=== PATIENT | female | born 1935 | race Caucasian/White ===

== ENCOUNTER 2016-10-06 10:21 | Observation (INO) ==
--- NOTE | 2016-10-06 10:50 | Emergency Department Note ---
Disposition Clinical Impression: Vaginal irritation Syncope Qualifiers: Syncope type: unspecified Qualified Code(s): R55 - Syncope and collapse Leukocytosis, unspecified Qualifiers: Leukocytosis type: unspecified Qualified Code(s): D72.829 - Elevated white blood cell count, unspecified Disposition: Admitted As Inpatient Condition: Fair Time of Disposition: 13:49 Syncope HPI - General Chief Complaint: ED Syncope Stated Complaint: Syncope on toilet Time Seen by Provider: 10/06/16 10:25 Source: EMS Limitations: no limitations Nursing Notes Reviewed: Yes Vital Signs Reviewed: Yes - History of Present Illness HPI Narrative: This is an 80-year-old female with past medical history for minor stroke, COPD and dementia. She complains of episodes of syncope 1 hour. Patient has home health care and home health life care planner reports patient became limp after attempting to go to the bathroom to urinate. Patient's son was called and went and picked her up. Patient was brought to the ED. Patient had a prior episode of this 9 months ago secondary to UTI. Patient's son also reports the patient' s home health care has's standard and has been having some issues concerning patient's hygiene. He is not on any anticoagulant therapy - Related Data Home Medications Medication Instructions Recorded Confirmed Albuterol Sulfate [Proair Hfa] 1 - 2 puff IH Q4-6H PRN 12/08/15 10/06/16 Atorvastatin [Lipitor] 10 mg PO DAILY 12/08/15 10/06/16 Donepezil [Aricept] 10 mg PO HS 12/08/15 10/06/16 Loratadine [Claritin] 10 mg PO DAILY 12/08/15 10/06/16 Metoprolol [Lopressor] 25 mg PO BID PRN 12/08/15 10/06/16 Sertraline [Zoloft] 25 mg PO DAILY 12/08/15 10/06/16 Memantine HCl [Namenda Xr] 14 mg PO DAILY 01/02/16 10/06/16 Previous Rx's Medication Instructions Recorded Cefdinir [Omnicef] 300 mg PO BID #14 capsule 02/12/16 Allergies Allergy/AdvReac Type Severity Reaction Status Date / Time aspirin [ASA] Allergy Rash Verified 10/06/16 10:30 Review of Systems: Denies pain, headache, fever, chills, nausea, vomiting, chest pain, heart palpitations, abdominal pain, diarrhea, lightheadedness, dizziness, weakness. All systems ED: reviewed and negative except as stated. Past Medical History - Past Medical History Source: old records reviewed, obtained from family Medical history: Reports: COPD, dementia, hyperlipidemia Surgical history: Reports: hysterectomy, orthopedic, other Psychiatric history: Reports: no psych history CHECK WRITER history: Reports: no CHECK WRITER history - Social History Smoking Status: Former smoker Smokeless Tobacco Status: No Alcohol use: Reports: none Drug use: Reports: none Physical Exam Vital Signs Temperature 97.5 F L 10/06/16 10:23 Pulse Rate 80 10/06/16 10:23 Respiratory Rate 18 10/06/16 10:23 Blood Pressure 147/95 10/06/16 10:23 O2 Sat by Pulse Oximetry 95 10/06/16 10:23 Temperature 97.5 F L 10/06/16 10:23 Pulse Rate 84 10/06/16 10:55 Respiratory Rate 16 10/06/16 10:55 Blood Pressure 130/105 10/06/16 10:55 O2 Sat by Pulse Oximetry 99 10/06/16 10:55 Oxygen Delivery Oxygen Delivery Room Air -General Appearance: Patient is a 80-year-old female who is alert and oriented 3 and in no acute distress. Patient appears happy and comfortable -Neurological exam: Cranial nerves II-12 intact, no focal deficits observed, strength equal 5/5 bilaterally in upper and lower extremities, cerebellar motion test negative. Negative loss of sensation - Head Head exam: atraumatic, normocephalic, normal inspection - Eye Eye exam: Present: normal appearance, PERR pinpoint, EOMI, negative for scleral icterus negative for conjunctival pallor - ENT ENT exam: normal exam, normal oropharynx, mucous membranes moist - Neck Neck exam: Present: normal inspection, full ROM, trachea midline, negative JVD - Chest Chest inspection: Present: Patient has bilateral equal rise and fall of chest wall. Non-tender to palpation. - Respiratory Respiratory exam: Clear to auscultation bilaterally without wheezes rales or rhonchi Cardiovascular Cardiovascular exam: Present: regular rate, normal rhythm, normal heart sounds, without murmurs rubs or gallops. - Abdominal Exam Abdominal exam: Present: soft, nondistended, Non-Tender light and deep palpation in all quadrants. Bowel sounds normoactive throughout all 4 quadrants. Negative for hyper or hyperresonance. - Extremities Exam Extremities exam: Present: normal inspection, full ROM, pulses equal bilaterally radial and dorsal pedal and posterior tibial. - Back Exam Back exam: Present: normal inspection, full ROM. Absent: tenderness, CVA tenderness (R), CVA tenderness (L) - Psychiatric Psychiatric exam: Present: normal affect, normal mood - Skin Skin exam: Present: warm, dry, intact, normal color - General Limitations: no limitations General appearance: alert, in no apparent distress Course Course Narrative: Patient seen and examined. Cardiac workup initiated. Chest x-ray, troponin, CBC, BMP, UA ordered as well. Straight catheter ordered for urine collection - Consultations Consultation #1: Dr. Braxton has accepted for admission 1338hrs Time: 13:38 Vital Signs Temperature 97.5 F L 10/06/16 10:23 Pulse Rate 80 10/06/16 10:23 Respiratory Rate 18 10/06/16 10:23 Blood Pressure 147/95 10/06/16 10:23 O2 Sat by Pulse Oximetry 95 10/06/16 10:23 Temperature 97.9 F 10/06/16 15:02 Pulse Rate 67 10/06/16 15:02 Respiratory Rate 18 10/06/16 15:02 Blood Pressure 188/84 10/06/16 15:02 O2 Sat by Pulse Oximetry 96 10/06/16 15:02 Oxygen Delivery Oxygen Delivery Room Air Syncope - [facility] Narrative Medical decision making narrative: Ms. Humphries is an 80-year-old female past medical history for COPD, prior strokes, UTI, dementia presents with a period of syncope lasting possibly 3 minutes 1 hour prior to arrival ED. Patient's history is concerning for possible cardiogenic cause of syncope to include arrhythmia, DE, thoracic aneurysm, vertebral basilar insufficiency, pneumonia, UTI. Patient checks x-ray showed no acute abnormalities, patient's CBC showed an elevation in white count of 13.5, CBC was unremarkable, urinalysis showed small amount of blood. RBCs 5-50 between, microscopic WBCs and 3-5. Troponin was negative 0.00. No clear etiology for patient's syncopal episode at this time. Recommend admission for observation. Patient has skin breakdown in her genital and perineal area secondary to dried feces found in her vaginal area and will require care. Dr. Braxton has accepted patient for admission. - Lab Data Result diagrams: 10/06/16 12:49 10/06/16 12:50 Lab Results 10/06/16 10/06/16 10/06/16 Range/Units 10:30 10:51 12:05 WBC (4.3-11.1) K/mcL RBC (3.82-4.97) M/mcL Hgb (11.5-15.4) g/dL Hct (35.3-44.9) % MCV (83.0-100.0) fL MCH (28.0-33.3) pg MCHC (31.6-35.5) g/dL RDW (11.5-14.5) % Plt Count (140-400) K/mcL MPV (9.4-12.4) fL Immature Gran % (0-4) % Seg Neutrophils % % Lymphocytes % % Monocytes % % Eosinophils % % Basophils % % Neutrophils # (1.6-8.9) K/mcL Lymphocytes # (0.6-4.6) K/mcL Monocytes # (0.0-1.3) K/mcL Eosinophils # (0.0-0.6) K/mcL Basophils # (0.0-0.2) K/mcL Sodium (136-145) mEq/L Potassium (3.5-4.5) mEq/L Chloride (98-109) mEq/L Carbon Dioxide (19-29) mEq/L BUN (7-20) mg/dL Creatinine (0.57-1.11) mg/dL Est GFR ( Amer) (> 60) Est GFR (Non-Af Amer) (> 60) BUN/Creatinine Ratio (6-26) Glucose (70-99) mg/dL POC Glucose 135 H (58-89) Calculated Osmolality (280-300) Calcium (8.6-10.8) mg/dL Troponin I 0.00 (0-0.03) ng/mL Urine Color Yellow (Yellow) Urine Clarity Clear (Clear) Urine pH 6.5 (5.0-8.0) pH Units Ur Specific [place] 1.012 (1.010-1.025) Urine Protein Negative (Neg-Trace) mg/dL Urine Glucose (UA) Normal (Normal) mg/dL Urine Ketones Negative (Negative) mg/dL Urine Blood Small H (Negative) Urine Nitrite Negative (Negative) Urine Bilirubin Negative (Negative) Urine Urobilinogen Normal (Normal) mg/dL Ur Leukocyte Esterase Negative (Negative) Urine Microscopic RBC 5-15 H (0-3) per hpf Urine Microscopic WBC 3-5 H (0-3) per hpf Ur Squamous Epith Cells Many H (None-Few) per lpf Urine Bacteria None Seen (None-Few) per hpf Hyaline Casts None Seen (None-Few) per lpf Ur Culture Indicated? NO (NO) 10/06/16 10/06/16 Range/Units 12:49 12:50 WBC 13.5 H (4.3-11.1) K/mcL RBC 4.82 (3.82-4.97) M/mcL Hgb 13.9 (11.5-15.4) g/dL Hct 42.9 (35.3-44.9) % MCV 89.0 (83.0-100.0) fL MCH 28.8 (28.0-33.3) pg MCHC 32.4 (31.6-35.5) g/dL RDW 12.9 (11.5-14.5) % Plt Count 133 L (140-400) K/mcL MPV 12.7 H (9.4-12.4) fL Immature Gran % 0.6 (0-4) % Seg Neutrophils % 79.9 % Lymphocytes % 12.5 % Monocytes % 5.3 % Eosinophils % 0.7 % Basophils % 1.0 % Neutrophils # 10.8 H (1.6-8.9) K/mcL Lymphocytes # 1.7 (0.6-4.6) K/mcL Monocytes # 0.7 (0.0-1.3) K/mcL Eosinophils # 0.1 (0.0-0.6) K/mcL Basophils # 0.1 (0.0-0.2) K/mcL Sodium 142 (136-145) mEq/L Potassium 4.4 (3.5-4.5) mEq/L Chloride 112 H (98-109) mEq/L Carbon Dioxide 16 L (19-29) mEq/L BUN 12 (7-20) mg/dL Creatinine 0.81 (0.57-1.11) mg/dL Est GFR ( Amer) > 60 (> 60) Est GFR (Non-Af Amer) > 60 (> 60) BUN/Creatinine Ratio 15 (6-26) Glucose 98 (70-99) mg/dL POC Glucose (58-89) Calculated Osmolality 294 (280-300) Calcium 8.9 (8.6-10.8) mg/dL Troponin I (0-0.03) ng/mL Urine Color (Yellow) Urine Clarity (Clear) Urine pH (5.0-8.0) pH Units Ur Specific [place] (1.010-1.025) Urine Protein (Neg-Trace) mg/dL Urine Glucose (UA) (Normal) mg/dL Urine Ketones (Negative) mg/dL Urine Blood (Negative) Urine Nitrite (Negative) Urine Bilirubin (Negative) Urine Urobilinogen (Normal) mg/dL Ur Leukocyte Esterase (Negative) Urine Microscopic RBC (0-3) per hpf Urine Microscopic WBC (0-3) per hpf Ur Squamous Epith Cells (None-Few) per lpf Urine Bacteria (None-Few) per hpf Hyaline Casts (None-Few) per lpf Ur Culture Indicated? (NO) - EKG Data EKG attestation: Yes I reviewed and interpreted this EKG. EKG results narrative: EKG dated 10/06/2016 1101 hrs. shows a normal sinus rhythm with a ventricular rate of 75 beats a minute. No acute ST abnormalities concerning elevations or depressions in any leads. No QT prolongation, no QRS widening. T wave inversion in V2. EKG was compared to previous EKG 02/10/2016 which shows a sinus tach at 109 bpm with same morphology as today. Just the rate is different. Attestation Statement - Attestation Attestation: For this encounter, I have reviewed the resident, WHEEL ALIGNMENT MECHANIC, or PA documentation, treatment plan, and medical decision making; and I have had face to face time with this patient. History source: Patient is unable to provide information for this note. Info was gathered from the patient, hospital staff, the patient's chart. History limitations: Patient condition Medications: As per nurses note 80-year-old female presents after syncopal at home. Family states the patient syncopized once last year and was diagnosed with urinary tract infection. Today the patient syncopized while on the toilet. The home health nurse kept her studies so that she did not fall or hit her head. The son states the patient was unconscious for at least 3 minutes. He states they did not take her pulse but she continued to breathe throughout that time. Patient is awake and alert in the emergency department during my initial evaluation. She denies chest pain pain or symptoms previous to the event. On physical examination the patient is moving all extremities. She had irritation to the perineal area due to fecal irritation. Patient will be admitted to the hospital for further continued care and evaluation of syncope.
[2016-10-06 11:01] LABS: Bilirubin,Urine Negative (Negative); Blood,Urine Small (Negative); Clarity,Urine Clear (Clear); Color,Urine Yellow (Yellow); Glucose,Urine (UA) Normal (Normal); Ketones,Urine Negative (Negative); Leukocyte Esterase,Urine Negative (Negative); Nitrite,Urine Negative (Negative); PH,Urine 6.5 pH Units (5.0-8.0); Protein,Urine Negative (Neg-Trace); Specific Gravity,Urine 1.012 (1.010-1.025); Urobilinogen,Urine Normal (Normal)
[2016-10-06 11:02] LABS: Bacteria,Urine None Seen per hpf (None-Few); Hyaline Casts,Urine None Seen per lpf (None-Few); Squamous Epithelial Cell,Urine Many per lpf (None-Few)
[2016-10-06 12:57] LABS: Basophils # 0.1 K/mcL (0.0-0.2); Eosinophils # 0.1 K/mcL (0.0-0.6); Eosinophils % 0.7 %; Hematocrit 42.9 % (35.3-44.9); Hemoglobin 13.9 g/dL (11.5-15.4); Immature Granulocytes % 0.6 % (0-4); Lymphocytes # 1.7 K/mcL (0.6-4.6); Lymphocytes % 12.5 %; Mean Corpuscular HGB Conc 32.4 g/dL (31.6-35.5); Mean Corpuscular Hemoglobin 28.8 pg (28.0-33.3); Mean Platelet Volume 12.7 fL (9.4-12.4); Monocytes # 0.7 K/mcL (0.0-1.3); Monocytes % 5.3 %; Neutrophils # 10.8 K/mcL (1.6-8.9); Platelet Count 133 K/mcL (140-400); Red Blood Count 4.82 M/mcL (3.82-4.97); Red Cell Distribution Width 12.9 % (11.5-14.5); Segmented Neutrophils % 79.9 %
[2016-10-06 13:10] LABS: BUN/Creatinine Ratio 15 (6-26); Blood Urea Nitrogen 12 mg/dL (7-20); Calcium 8.9 mg/dL (8.6-10.8); Carbon Dioxide 16 mEq/L (19-29); Chloride 112 mEq/L (98-109); Glucose 98 mg/dL (70-99); Osmolality,Calculated 294 (280-300); Potassium 4.4 mEq/L (3.5-4.5); Sodium 142 mEq/L (136-145); eGFR For African Americans > 60 (> 60); eGFR For Non-African Americans > 60 (> 60)
[2016-10-06] MEDS ORDERED: MOM Conc 10 ML UD.LIQ PO PRN (16:31)
[2016-10-06] MEDS ORDERED: Acetaminophen 325 MG TABLET PO PRN (16:31)
[2016-10-06] MEDS ORDERED: Naloxone 0.4 MG/ML INJ IVP PRN (16:31)
[2016-10-06] MEDS ORDERED: Ondansetron 4 MG/2 ML VIAL IVP PRN (16:31)
--- NOTE | 2016-10-06 16:40 | Internal Med History&Physical ---
<Zaida Peng - Last Filed: 10/07/16 07:22> Date of Encounter: 10/07/16 Time of Encounter: 16:05 Assessment and Plan (1) Syncope Current visit: Yes Status: Acute Pt had 3 min syncopal episode while sitting on toilet at home this a.m. Prior to this episode, pt had been walking around her apartment independently, but complained of dizziness prior to. BP at that time was 100/70. Per caregiver, pt was urinating and caregiver was close by so pt did not fall or have an injury. Episode lasted approx 3 min with pt "in and out". Son reports that pt was unresponsive, limp and had her eyes open. Echo Orthostatic VS Fall precautions Qualifiers: Syncope type: unspecified Qualified Code(s): R55 - Syncope and collapse (2) Dementia Current visit: No Status: Chronic Pt is alert, oriented to name and place. Despite multiple attempts to orient pt to time, she is unable. Son reports that this is pt's baseline and that she does not seem more confused than normal. Pt is close to nurse's station Fall precautions Continue home medications Qualifiers: Dementia type: unspecified type Dementia behavioral disturbance: without behavioral disturbance Qualified Code(s): F03.90 - Unspecified dementia without behavioral disturbance (3) Leukocytosis, unspecified Current visit: Yes Status: Acute White count 13.5 today. Urine does not indicate infection, and pt takes Omnicef everyday for prophylaxis for UTI. Chest xray is negative for any acute cardiopulmonary process. Lungs are clear ant and post. Will continue to monitor. Labs in a.m. Monitor labs Monitor for fever or increase in confusion. Qualifiers: Leukocytosis type: unspecified Qualified Code(s): D72.829 - Elevated white blood cell count, unspecified (4) Vaginal irritation Current visit: Yes Status: Acute Pt with dried feces around perineal area while in ED today and son reports that he has had concerns with pt's hygiene recently and the actual assistance of the aides who care for pt. Pt is requesting a cream for the irritation and a barrier cream for when the pt goes home. Fistula cannot be ruled out. Son also states that pt has become incontinent of urine at times, thus causing further irritation. Barrier cream for discharge Internal Medicine - H&P: HPI Chief complaint: syncope Admitted From: Home Plans for Post Hospital Care: Home History of present illness: Ms. Humphries is a 80 year old female with history of HTN, hyperlipidemia, and dementia, who presents with syncopal episode this a.m. at home. Witnessed by caregiver, lasted approx 3 min. Pt is now alert and awake, answers questions appropriately, however is only alert to person and place. Pt states that it is 1925. Spoke with son who states that pt is a DNR-CC. He reports that he noticed that his mother was a little more weak yesterday than normal and caregiver noticed this today, as well. Denies any other recent change in behavior or normal status. Past Med Surg Social Fam HX - Past Medical History Medical history: COPD, dementia, hyperlipidemia Psychiatric history: no psych history - Past Surgical History Surgical History: hysterectomy, orthopedic, other - Social History Smoking Status: Former smoker Smokeless Tobacco Status: No Alcohol use: none Drug use: none - Family History Mother Living Status: Hx Family Cancer: Yes Sister Living Status: Hx Family Neurologic Disorders: Yes (dementia) Internal Medicine - H&P: Meds Albuterol Sulfate [Proair Hfa] 1 - 2 puff IH Q4-6H PRN 12/08/15 [History] Atorvastatin [Lipitor] 10 mg PO DAILY 12/08/15 [History] Donepezil [Aricept] 10 mg PO HS 12/08/15 [History] Loratadine [Claritin] 10 mg PO DAILY 12/08/15 [History] Metoprolol [Lopressor] 25 mg PO BID PRN 12/08/15 [History] Sertraline [Zoloft] 25 mg PO DAILY 12/08/15 [History] Memantine HCl [Namenda Xr] 14 mg PO DAILY 01/02/16 [History] Cefdinir [Omnicef] 300 mg PO BID #14 capsule 02/12/16 [Rx] Allergies aspirin [ASA] Allergy (Verified 10/06/16 10:30) Rash ROS unobtainable: due to mental status All Systems PM: A 10-system review of systems was performed and is negative for pertinent findings except as documented above in the HPI. - Cardiovascular Cardiovascular ROS IM: no chest pain - Constitutional Vitals: Temp Pulse Resp BP Pulse Ox 97.9 F 67 18 188/84 96 10/06/16 15:02 10/06/16 15:02 10/06/16 15:02 10/06/16 15:02 10/06/16 15:02 General appearance: Present: cooperative, A&O X 1, pleasant, no acute distress, underweight - Head Head exam: Present: atraumatic, normal inspection - Eye Eye exam: Present: normal appearance, conjuntiva pink - ENT ENT exam: Present: mucous membranes dry - Neck Neck exam general surgery: Present: normal inspection. Absent: lymphadenopathy , thyromegaly - Expanded Neck Exam Neck exam: Absent: carotid bruit, thyroid mass - Respiratory Respiratory exam: Present: CTAB. Absent: accessory muscle use, chest wall tenderness, decreased breath sounds, rhonchi, wheezes - Cardiovascular Cardiovascular exam: Present: RRR, +S1, +S2. Absent: irregular rhythm, JVD - GI/Abdominal GI/Abdominal exam: Present: hyperactive bowel sounds. Absent: hepatomegaly, tenderness - Rectal Rectal exam: Present: deferred - Skin Skin exam: Present: dry, normal color, warm Internal Med - H&P Results - Labs CBC & Chem 7: 10/06/16 12:49 10/06/16 12:50 - EKG Data EKG shows normal: sinus rhythm - EKG Data Prior EKG available for review: yes When compared to previous EKG: there is no significant change EKG comments: 10/06/16 16:44 other than rate, no significant change from EKG dated 02/10/16. Today's ekg rate 75, NM interval 172, QT 377. <Amina Biggs - Last Filed: 10/07/16 10:35> Date of Encounter: 10/06/16 Time of Encounter: 21:00 Internal Medicine - H&P: HPI History of present illness: Ms. Humphries is a 80 year old female All Systems PM: A 10-system review of systems was performed and is negative for pertinent findings except as documented above in the HPI. - Constitutional Vitals: Temp Pulse Resp BP Pulse Ox 97.8 F 87 14 146/75 96 10/07/16 07:53 10/07/16 07:53 10/07/16 07:53 10/07/16 07:53 10/07/16 07:53 Internal Med - H&P Results - Labs CBC & Chem 7: 10/06/16 12:49 10/06/16 12:50 Labs: Cardiac Enzymes 10/06/16 Range/Units 18:42 Troponin I 0.02 (0-0.03) ng/mL - Impressions ITS Impressions Head CT 10/06/16 18:54 IMPRESSION: 1. No acute intracranial abnormality. 2. Chronic left parieto-occipital infarction. 3. Findings compatible with chronic small vessel ischemic disease. D/ / Ravin Escalera MD / Ravin Escalera MD Interpreting Provider: Ravin Escalera MD - Attending Attestation Patient seen and examined at bedside. Patient is resting in bed and awake and alert at this time. As per family her mental status waxes and wanes and has history of severe dementia. She denies any discomfort at this time, and is confused about why she is at the hospital at this time. As per family and medical records, there is no prior history of syncopal episodes. The MARKET RESEARCH MANAGER (Zaida Peng) discussed patient's code status with the son and as per patient's wishes , patient is DNR-CC. Patient is admitted for work up for syncopal episode. Patient is noted to have leukocytosis but has no clinical signs of infection. She is chronically on Omnicef for UTI prophylaxis. CT head reported no acute intracranial abnormality. Will monitor off abx at this time. Will obtain orthostatic vitals, 2D echo, and carotid dopplers for syncope work up. Maintain fall precautions. Patient noted to have metabolic acidosis, will closely monitor and replace bicarb if acidosis worsens. Will resume home medications. BP within acceptable range, continue Metoprolol. DVT ppx with Heparin SQ I have discussed the case with the MARKET RESEARCH MANAGER (Zaida Peng) and agree with her documented findings, assessment, and plan.
[2016-10-06] MEDS: Cefdinir 300 MG CAPSULE PO SCH (21:52)
[2016-10-07] MEDS ORDERED: NAMENDA 14 MG PO SCH (09:00)
[2016-10-07] MEDS ORDERED: Loratadine 10 MG TABLET PO SCH (09:00)
[2016-10-07] MEDS: Cefdinir 300 MG CAPSULE PO SCH (09:29)
[2016-10-07 10:36] LABS: Basophils # 0.1 K/mcL (0.0-0.2); Basophils % 1.3 %; Eosinophils # 0.2 K/mcL (0.0-0.6); Eosinophils % 2.6 %; Hematocrit 42.6 % (35.3-44.9); Hemoglobin 13.6 g/dL (11.5-15.4); Immature Granulocytes % 0.5 % (0-4); Lymphocytes # 2.2 K/mcL (0.6-4.6); Mean Corpuscular HGB Conc 31.9 g/dL (31.6-35.5); Mean Corpuscular Hemoglobin 29.5 pg (28.0-33.3); Mean Corpuscular Volume 92.4 fL (83.0-100.0); Mean Platelet Volume 13.3 fL (9.4-12.4); Monocytes # 0.6 K/mcL (0.0-1.3); Monocytes % 7.1 %; Neutrophils # 5.3 K/mcL (1.6-8.9); Platelet Count 146 K/mcL (140-400); Red Blood Count 4.61 M/mcL (3.82-4.97); Red Cell Distribution Width 13.2 % (11.5-14.5); Segmented Neutrophils % 62.5 %
[2016-10-07 11:04] LABS: BUN/Creatinine Ratio 16 (6-26); Blood Urea Nitrogen 16 mg/dL (7-20); Calcium 9.6 mg/dL (8.6-10.8); Carbon Dioxide 22 mEq/L (19-29); Chloride 110 mEq/L (98-109); Glucose 104 mg/dL (70-99); Osmolality,Calculated 299 (280-300); Potassium 4.3 mEq/L (3.5-4.5); Sodium 144 mEq/L (136-145); eGFR For African Americans > 60 (> 60); eGFR For Non-African Americans 55 (> 60)
[2016-10-07 12:15] VITALS: BP 138/77
--- NOTE | 2016-10-07 15:07 | Discharge Summary ---
Date of Encounter: 10/07/16 Time of Encounter: 14:30 - Discharge Diagnosis (1) Syncope Priority: Primary Status: Acute Comments: Occurred while the patient was on the commode- consistent with vasovagal syncope. Vital signs stable well admitted. Urinalysis negative. Chest x-ray negative. Head CT negative. Carotid ultrasound unremarkable. Echocardiogram unremarkable. Follow-up outpatient. Qualifiers: Syncope type: unspecified Qualified Code(s): R55 - Syncope and collapse (2) Leukocytosis, unspecified Priority: Primary Status: Resolved Qualifiers: Leukocytosis type: unspecified Qualified Code(s): D72.829 - Elevated white blood cell count, unspecified (3) Vaginal irritation Priority: Primary Status: Acute Comments: Continue barrier cream upon discharge. Highly recommend patient to have home health services to assist with bathing. No signs of active infection. (4) DVT prophylaxis Priority: Primary Status: Acute Comments: Subcutaneous heparin while admitted (5) Dizzy Priority: Primary Status: Resolved (6) Weak Priority: Primary Status: Acute Comments: Acute on chronic, patient declined OT and PT services. (7) Dementia Priority: Secondary Status: Chronic Comments: Alert, interactive, and pleasantly confused. Oriented at times, consistent with her baseline. Qualifiers: Dementia type: unspecified type Dementia behavioral disturbance: without behavioral disturbance Qualified Code(s): F03.90 - Unspecified dementia without behavioral disturbance (8) HTN (hypertension) Priority: Secondary Status: Chronic Comments: Controlled, orthostatic vital signs unremarkable. Follow-up outpatient Qualifiers: Hypertension type: unspecified secondary hypertension Qualified Code(s): I15.9 - Secondary hypertension, unspecified; I15 - Secondary hypertension - Discharge Medications Home Medications: Albuterol Sulfate [Proair Hfa] 1 - 2 puff IH Q4-6H PRN 12/08/15 [History] Atorvastatin [Lipitor] 10 mg PO DAILY 12/08/15 [History] Donepezil [Aricept] 10 mg PO HS 12/08/15 [History] Loratadine [Claritin] 10 mg PO DAILY 12/08/15 [History] Metoprolol [Lopressor] 25 mg PO BID PRN 12/08/15 [History] Sertraline [Zoloft] 25 mg PO DAILY 12/08/15 [History] Memantine HCl [Namenda Xr] 14 mg PO DAILY 01/02/16 [History] Cefdinir [Omnicef] 300 mg PO BID #14 capsule 02/12/16 [Rx] Allergies/Adverse Reactions: Allergies aspirin [ASA] Allergy (Verified 10/06/16 10:30) Rash Procedures/tests Complete & Pending: Procedures Performed prior 72 hours Category Date Time Status CT head/brain wo con [CT] Routine Cat Scan 10/06/16 18:54 Completed EV carotid duplex imaging BI Routine Y 10/07/16 18:54 Completed EV echocardiogram Routine Y 10/07/16 18:32 Completed Date of admission: 10/06/16 14:22 Primary care physician: Donell Apodaca CNP Consults: 10/06/16 15:32 Consult to Rope Maker [CONS] Routine Reason for SW Consult: Patient recently fired [employer] , and [facility] is supposed to start Sat Discharging clinician: Suze Almaguer Anticipated date of discharge: 10/07/16 (refused OT/PT) - Patient Status Disposition: Home, Self-Care Condition: Fair Functional capacity at discharge: uses cane/walker Overall status at discharge: patient is back to baseline - Discharge Instructions Follow Up With: Donell Apodaca CNP [Primary Care Provider] - Additional Instructions: Follow-up with primary care provider in one to 2 weeks - Diet and Activity Activity: increase activity as tolerated Diet: regular diet Hospital course: Ms. Humphries is a 80 year old female with past medical history of hypertension, hyperlipidemia, advanced dementia with short-term memory loss. Patient presented to the emergency department chief complaint syncopal episode on the morning of presentation at home. Witnessed by a caregiver and lasted approximately 3 minutes and occurred while the patient was on the commode. Patient was awake and alert and pleasantly confused and oriented 2 upon presentation to the emergency department. Patient was accompanied by her son who states the patient was slightly more weak on the day of presentation. Workup in the emergency department unremarkable. Chest x-ray negative. Head CT negative. Mild leukocytosis noted. Patient was admitted to the hospitalist service for further evaluation and management. Mild leukocytosis resolved. Patient remained afebrile with stable vital signs over the course of her 2 day admission. Patient remained alert and pleasantly confused with short-term memory loss and repeating questions throughout this admission. Her son was present during most of this admission and stated this was consistent with her baseline. Patient was insistent upon going home. She refused any OT or PT evaluations. She was noted to have fecal matter in her perineal area and was started on a barrier cream- sent home with tube of Calazine. Echocardiogram unremarkable with ejection fraction of 55%. Carotid Doppler with nonstenotic plaque. She was discharged home back to her assisted living community in stable condition with close outpatient follow-up recommended. ITS Impressions Chest X-Ray 10/06/16 10:48 IMPRESSION: No evidence for acute cardiopulmonary process. COPD. D/ / 10/06/2016 12:18:51 Jasson Becker MD / [email or web address] Interpreting Provider: Jasson Becker MD Head CT 10/06/16 18:54 IMPRESSION: 1. No acute intracranial abnormality. 2. Chronic left parieto-occipital infarction. 3. Findings compatible with chronic small vessel ischemic disease. D/ / Ravin Escalera MD / Ravin Escalera MD Interpreting Provider: Ravin Escalera MD 10/07/16 13:59 - Vascular Preliminary by Zaida Whatley [facility] Num: [id number] : 1935 Patient Age: 80 Carotid Doppler Completed Nonstenotic Plaque Only bilaterally Echocardiogram impressions: LVEF 55%. Not all LV wall segments are well visualized. Normal left ventricle size and systolic function. Normal right ventricular size and function. No significant valvular dysfunction. No pulmonary hypertension. - Time Spent with Patient Total time spent providing and/or coordinating discharge services: - Constitutional Vitals: Temp Pulse Resp BP Pulse Ox 97.4 F L 75 15 138/77 96 10/07/16 12:15 10/07/16 12:15 10/07/16 12:15 10/07/16 12:15 10/07/16 12:15 General appearance: Present: cooperative, A&O X 2, pleasant, no acute distress, underweight - Head Head exam: Present: atraumatic, normocephalic - Eye Eye exam: Present: PERRL, conjuntiva pink, sclera anicteric Pupils: Present: PERRL - Neck Neck exam general surgery: Present: supple, trachea midline. Absent: lymphadenopathy - Respiratory Respiratory exam: Present: CTAB. Absent: accessory muscle use, rales, respiratory distress, rhonchi, wheezes - Cardiovascular Cardiovascular exam: Present: RRR, +S1, +S2. Absent: diastolic murmur, gallop, rubs, systolic murmur - GI/Abdominal GI/Abdominal exam: Present: normal bowel sounds, soft, no peritoneal signs. Absent: distended, tenderness - Extremities Exam Extremities exam: Present: warm, radial pulses palpable and symetrical. Absent : calf tenderness, cyanotic, pedal edema - Neurological Exam Neurological exam: Present: alert, CN II-XII intact, no focal deficits, strengths equal and symetr throughout. Absent: pronater drift, facial droop, speech deficit - Skin Skin exam: Present: dry, intact, pallor, warm
--- NOTE | 2016-10-07 15:07 | ECHO - Doppler Report ---
Echocardiogram Name: Nyasia Humphries Date of Study: 10/07/2016 Date: 1935 Ht: 67.0 in Medical Record#: [id number] Age: 80 Wt: 94.0 lb Gender: Female BSA: 1.47 Order #: [id number] Location: [facility] Room #: [id number] Reading Physician: Kenia Smith DO Tube Coverer: Zaida Whatley RDCS, RVT Ordering Physician: Zaida Peng CNP Primary Physician: Donell Apodaca CNP Indications: Syncope Impressions: LVEF 55%. Not all LV wall segments were well visualized. Normal left ventricular size and systolic function. Normal right ventricular size and function. No significant valvular dysfunction. No pulmonary hypertension. Findings: Study Quality * Technically sub-optimal due to poor echocardiographic windows. ECG Findings * Normal sinus rhythm. Aortic Valve * No aortic regurgitation. * Aortic valve not well visualized. * No aortic stenosis. Mitral Valve * No mitral regurgitation. * Mitral valve not well visualized. * Suboptimal Doppler. Tricuspid Valve * Normal tricuspid valve structure. * Trace tricuspid regurgitation. * Estimated RA pressure is 3 mmHg. * Estimated RVSP is 21 mmHg. * No pulmonary hypertension. Pulmonic Valve * Pulmonic valve is not well visualized. * No pulmonic stenosis. * No pulmonic regurgitation. Pulmonary Artery * Pulmonary artery not well visualized. Left Ventricle * LVEF 55%. * Normal LV chamber size, wall thickness and function. * Indeterminate diastolic function. * Unable to evaluate segmental wall motion due to technical quality. Right Ventricle * Normal right ventricular structure and function. Left Atrium * Left atrium is not well visualized. Right Atrium * Right atrium is not well visualized. IVC * The IVC is not dilated. Pericardium * There is no pericardial effusion present. Interatrial Septum * Interatrial septum not well evaluated. Aorta * Normally sized aortic root. History Hypertension Hypercholesteremia Measurements: BP: 146/ 75 2D Normal Values RVIDd: 3.10 cm <2.7 cm IVSd: .70 cm 0.6 - 1.0 cm LVIDd: 3.20 cm 3.7 - 5.6 cm LVPWd: .70 cm 0.6 - 1.1 cm LVIDs: 2.40 cm 1.5 - 3.6 cm AO: 2.20 cm < 4.0 cm LA: 1.40 cm 2.0 - 4.0cm %FS: 25.00 cm >25 % LA volume: 14 Mitral Valve Peak E:.44 m/sec Peak A:.51 m/sec E/A Ratio:0.9 Peak E' Lat Shaka:5.46 cm/s Peak E' Med Shaka:4.68 cm/s E/E' Lat Ratio:8 E/E' Med Ratio:9.4 Tricuspid Valve TV Regurg Peak Grad: 18.00mmHg TV Regurg Peak Shaka: 2.11m/sec Updated by Kenia Smith on 10/07/2016 2:59:25 PM electronically signed on 10/07/2016 3:02:39 PM with status of Final Wall Motion Dominguez: 1=Normal, 2=Hypokinesis, 3=Akinesis, 4=Dyskinesis, 5=Aneurysmal, 6=Hyperkinetic, X=Not Visualized (Blank)=Missing
[2016-10-07] MEDS ORDERED: *HR* Heparin 5,000 UNIT/ML VIAL SQ SCH (19:00)
--- NOTE | 2016-10-08 15:25 | Electrocardiograph Report ---
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
--- NOTE | 2016-10-09 12:42 | Carotid Imaging Report ---
Carotid Duplex Patient Name:Nyasia Humphries Order Number:[id number] Procedure Date:10/07/2016 Date:1935ge:80 yrs Gender:Female Lt BP:143 / 74 mmHg Rt.BP:146 / 75 mmHgHeart Rate: Location:[facility] Room #: 3B31 Intrusion Analyst:Zaida Whatley RDCS, RVT Referring MD:Zaida Peng CNP hat former:Donell Apodaca CNP Reading MD:Georgi Conklin MD Primary Indications:Syncope Risk Factors Yes/No Diabetes No Hypertension Yes Hypercholesterolemia Yes Smoker Previous Yes Impressions: Findings: Bilateral carotid system has nonstenotic plaque. Recommendations: Test completed on 10/07/2016 at 11:29:01 am. Findings Carotid Duplex: Right: There is nonstenotic plaque in the right bifurcation. There is smooth homogeneous plaque. There is antegrade spectral Doppler flow patterns in the right vertebral artery. Left: There is nonstenotic plaque in the left bifurcation. There is smooth heterogeneous plaque. There is nonstenotic plaque in the left proximal internal carotid artery. There is smooth heterogeneous plaque. There is antegrade spectral Doppler flow patterns in the left vertebral artery. Prior Study: No prior study available for comparison. Carotid Results Right PSV EDV Assessment Proximal CCA 58 13 Normal Mid CCA 54 9 Normal Distal CCA 56 13 Normal Bifurcation 55 11 Non Stenotic Plaque Proximal ICA 54 15 Normal Mid ICA 82 26 Normal Distal ICA 56 15 Normal ECA 100 11 Normal Vertebral Artery 34 10 Antegrade Flow Left PSV EDV Assessment Proximal CCA 74 19 Normal Mid CCA 84 19 Normal Distal CCA 74 17 Normal Bifurcation 65 14 Non Stenotic Plaque Proximal ICA 100 26 Non Stenotic Plaque Mid ICA 119 27 Normal Distal ICA 44 15 Normal ECA 56 9 Normal Vertebral Artery 51 16 Antegrade Flow Ratio's Right ICA/CCA Ratio: 1.52 ICA/CCA Values: 82/54 Left ICA/CCA Ratio: 1.41 ICA/CCA Values: 119/84 Updated by Georgi Conklin MD on 10/09/2016 12:38:29 PM electronically signed on 10/09/2016 12:38:39 PM with status of Final
== END 2016-10-07 16:30 | disposition home or self-care (01) ==
LOC: EMEROO 10:21 → 3BNU 10:21
PROVIDERS: ADMIT Registered Nurse; ATTEND Nurse Practitioner Family

== ENCOUNTER 2017-02-12 13:21 | Inpatient (IN) ==
[2017-02-12] MEDS ORDERED: 0.9 % Sodium Chloride 1,000 ML IVC ONE (13:56)
--- NOTE | 2017-02-12 13:56 | Emergency Department Note ---
Disposition Clinical Impression: Altered mental status Qualifiers: Altered mental status type: unspecified Qualified Code(s): R41.82 - Altered mental status, unspecified UTI (urinary tract infection) Qualifiers: Urinary tract infection type: site unspecified Hematuria presence: without hematuria Qualified Code(s): N39.0 - Urinary tract infection, site not specified Disposition: Admitted As Inpatient Condition: Fair Time of Disposition: 16:59 Female Urogenital HPI - General Chief complaint: ED Urogenital-Female Stated complaint: " Has not peed for a few days" Time Seen by Provider: 02/12/17 13:41 Source: family, EMS Limitations: no limitations Nursing Notes Reviewed: Yes Vital Signs Reviewed: Yes - History of Present Illness HPI Narrative: 81 year old female with PMHx of dementia, HTN, HLD. Patient lives at home by herself and gets home health to come help her for about 40 hours/week. Patient has baseline dementia, and all of history was obtained from her Son, victoriano, who is also the patient's power of securities attorney. Victoriano states that home health was with patient today. Home health nurse stated that patient has not been urinating or drinking properly. She has been more dizzy, and has had more redness in her genital area. home health nurse also states that patient has been more dehydrated than normal. Victoriano states that patient was prescribed maintenance antibiotics for continuous UTI's by her PCP. However, patient is not able to always have these antibiotics filled because her insurance will not pay for it. son denies of patient having any recent falls. However, he does state that she is a little more confused than baseline. Patient last came to ED on 01/22 for UTI , dehydration. At that time, she was discharged home on Keflex. Pt Subjective Complaint: other (increased confusion, lack of urination. ) - Related Data Home Medications Medication Instructions Recorded Confirmed Albuterol Sulfate [Proair Hfa] 1 - 2 puff IH Q4-6H PRN 12/08/15 02/12/17 Atorvastatin [Lipitor] 10 mg PO DAILY 12/08/15 02/12/17 Donepezil [Aricept] 10 mg PO HS 12/08/15 02/12/17 Loratadine [Claritin] 10 mg PO DAILY 12/08/15 02/12/17 Metoprolol [Lopressor] 25 mg PO BID PRN 12/08/15 02/12/17 Sertraline [Zoloft] 25 mg PO DAILY 12/08/15 02/12/17 Memantine HCl [Namenda Xr] 14 mg PO DAILY 01/02/16 02/12/17 Allergies Allergy/AdvReac Type Severity Reaction Status Date / Time aspirin [ASA] Allergy Rash Verified 02/12/17 13:23 Limitations: ROS unobtainable due to patients medical condition (due to altered mental status) Past Medical History - Past Medical History Medical history: Reports: COPD, dementia Surgical history: Reports: hysterectomy, orthopedic, other Psychiatric history: Reports: no psych history SPECIAL DUTY NURSE history: Reports: no SPECIAL DUTY NURSE history - Social History Smoking Status: Former smoker Smokeless Tobacco Status: No Alcohol use: Reports: none Drug use: Reports: none Physical Exam - General Limitations: altered mental status General appearance: alert, in no apparent distress, anxious, cachectic - Head Head exam: atraumatic, normocephalic - Eye Eye exam: Present: normal appearance - Neck Neck exam: Present: normal inspection, trachea midline - Chest Chest inspection: Present: normal inspection - Respiratory Respiratory exam: Present: normal lung sounds bilaterally - Cardiovascular Cardiovascular exam: Present: regular rate, +S1, +S2 - Abdominal Exam Abdominal exam: Present: soft, Non-Tender, diminished bowel sounds - Back Exam Back exam: Present: normal inspection. Absent: CVA tenderness (L) - Neurological Exam Neurological exam: Present: alert Course Vital Signs Temperature 98.1 F 02/12/17 13:25 Pulse Rate 102 02/12/17 13:25 Respiratory Rate 18 02/12/17 13:25 Blood Pressure 153/109 02/12/17 13:25 O2 Sat by Pulse Oximetry 95 02/12/17 13:25 Temperature 98.1 F 02/12/17 13:25 Pulse Rate 90 02/12/17 15:30 Respiratory Rate 18 02/12/17 18:40 Blood Pressure 148/115 02/12/17 18:40 O2 Sat by Pulse Oximetry 95 02/12/17 15:30 Oxygen Delivery Oxygen Delivery Room Air Urogenital-Female - MDM Narrative Medical decision making narrative: CBC unremarkable. BMP showed sodium level of 147, and AMANDA with Cr of 1.13. Troponin was negative. Urinalysis showed cloudy urine with many bacteria, squamous epithelial cells, and leukocyte esterase. patient got one dose of ceftriaxone. Head CT showed no acute abnormality, mild bilateral mastoid disease , stable chronic small vessel ischemic changes. chest xray showed no acute process. troponin was negative, and EKG showed no acute ST changes. Because patient is more altered than normal and because she is not safe to currently go home and live by herself, she will be admitted. Spoke with Dr. Braxton, who has accepted the admission. - Differential Diagnosis Likely: urinary tract infection - Medical Records Medical records reviewed: Yes I reviewed the patient's medical records. - Lab Data Lab results reviewed: Yes I reviewed the patient's lab results. Result diagrams: 02/12/17 14:08 02/12/17 14:08 Lab Results 02/12/17 02/12/17 02/12/17 Range/Units 13:55 14:08 14:08 WBC 9.8 (4.3-11.1) K/mcL RBC 5.34 H (3.82-4.97) M/mcL Hgb 15.3 (11.5-15.4) g/dL Hct 49.0 H (35.3-44.9) % MCV 91.8 (83.0-100.0) fL MCH 28.7 (28.0-33.3) pg MCHC 31.2 L (31.6-35.5) g/dL RDW 12.8 (11.5-14.5) % Plt Count 204 (140-400) K/mcL MPV 12.4 (9.4-12.4) fL Immature Gran % 0.3 (0-4) % Seg Neutrophils % 70.8 % Lymphocytes % 20.8 % Monocytes % 5.6 % Eosinophils % 1.7 % Basophils % 0.8 % Neutrophils # 7.0 (1.6-8.9) K/mcL Lymphocytes # 2.1 (0.6-4.6) K/mcL Monocytes # 0.6 (0.0-1.3) K/mcL Eosinophils # 0.2 (0.0-0.6) K/mcL Basophils # 0.1 (0.0-0.2) K/mcL Sodium 147 H (136-145) mEq/L Potassium 4.4 (3.5-4.5) mEq/L Chloride 108 (98-109) mEq/L Carbon Dioxide 27 (19-29) mEq/L BUN 19 (7-20) mg/dL Creatinine 1.13 H (0.57-1.11) mg/dL Est GFR ( Amer) 56 L (> 60) Est GFR (Non-Af Amer) 46 L (> 60) BUN/Creatinine Ratio 17 (6-26) Glucose 123 H (70-99) mg/dL Calculated Osmolality 308 H (280-300) Calcium 10.0 (8.6-10.8) mg/dL Troponin I (0-0.03) ng/mL Urine Color Yellow (Yellow) Urine Clarity Cloudy A (Clear) Urine pH 7.5 (5.0-8.0) pH Units Ur Specific [place] 1.021 (1.010-1.025) Urine Protein 30 H (Neg-Trace) mg/dL Urine Glucose (UA) Normal (Normal) mg/dL Urine Ketones Trace H (Negative) mg/dL Urine Blood Negative (Negative) Urine Nitrite Negative (Negative) Urine Bilirubin Negative (Negative) Urine Urobilinogen Normal (Normal) mg/dL Ur Leukocyte Esterase Large H (Negative) Urine Microscopic RBC 0-3 (0-3) per hpf Urine Microscopic WBC 5-15 H (0-3) per hpf Ur Squamous Epith Cells Many H (None-Few) per lpf Urine Bacteria Many H (None-Few) per hpf Hyaline Casts Moderate H (None-Few) per lpf Ur Culture Indicated? YES A (NO) 02/12/17 Range/Units 14:08 WBC (4.3-11.1) K/mcL RBC (3.82-4.97) M/mcL Hgb (11.5-15.4) g/dL Hct (35.3-44.9) % MCV (83.0-100.0) fL MCH (28.0-33.3) pg MCHC (31.6-35.5) g/dL RDW (11.5-14.5) % Plt Count (140-400) K/mcL MPV (9.4-12.4) fL Immature Gran % (0-4) % Seg Neutrophils % % Lymphocytes % % Monocytes % % Eosinophils % % Basophils % % Neutrophils # (1.6-8.9) K/mcL Lymphocytes # (0.6-4.6) K/mcL Monocytes # (0.0-1.3) K/mcL Eosinophils # (0.0-0.6) K/mcL Basophils # (0.0-0.2) K/mcL Sodium (136-145) mEq/L Potassium (3.5-4.5) mEq/L Chloride (98-109) mEq/L Carbon Dioxide (19-29) mEq/L BUN (7-20) mg/dL Creatinine (0.57-1.11) mg/dL Est GFR ( Amer) (> 60) Est GFR (Non-Af Amer) (> 60) BUN/Creatinine Ratio (6-26) Glucose (70-99) mg/dL Calculated Osmolality (280-300) Calcium (8.6-10.8) mg/dL Troponin I 0.00 (0-0.03) ng/mL Urine Color (Yellow) Urine Clarity (Clear) Urine pH (5.0-8.0) pH Units Ur Specific [place] (1.010-1.025) Urine Protein (Neg-Trace) mg/dL Urine Glucose (UA) (Normal) mg/dL Urine Ketones (Negative) mg/dL Urine Blood (Negative) Urine Nitrite (Negative) Urine Bilirubin (Negative) Urine Urobilinogen (Normal) mg/dL Ur Leukocyte Esterase (Negative) Urine Microscopic RBC (0-3) per hpf Urine Microscopic WBC (0-3) per hpf Ur Squamous Epith Cells (None-Few) per lpf Urine Bacteria (None-Few) per hpf Hyaline Casts (None-Few) per lpf Ur Culture Indicated? (NO) - Radiology Data Radiology results reviewed: Yes I reviewed the patient's radiology results. - EKG Data EKG attestation: Yes I reviewed and interpreted this EKG. EKG results narrative: sinus rhythm, axis normal, rate 81 ME interval 182 QRS duration 80 QT/Qtc 346/ 383, P R T axis 83 98 69 Attestation Statement - Attestation Attestation: I, Papo Winkler, examined this patient and my medical decision-making was reviewed with the PLASTERER FOREMAN/PA/Advanced Practice Nurse/Resident Physician. I agree with the documented findings, disposition and treatment plan as described except to the extent set forth below. 81-year-old female brought in by EMS with concerns of altered mental status. Patient has a history of dementia and is a poor historian and is unable to give a history regarding her symptoms. Patient states that she feels well. She is oriented to self and place only. Son states the patient has a history of urinary tract infections in the past with similar symptoms. Patient has become increasingly more confused over the past few days. Home health nurse called EMS because of confusion and concerns for possible dehydration. Patient does have an elevated creatinine compared to her baseline. Patient has a small white blood cells in her urine and positive leukocyte Estrace however on her previous urinalysis she had similar findings which grew out Escherichia coli. Patient will be treated for antibiotics for urinary tract infection and will be admitted to the hospital for altered mental status with urinary tract infection and acute kidney injury.
[2017-02-12 14:02] LABS: Bilirubin,Urine Negative (Negative); Blood,Urine Negative (Negative); Clarity,Urine Cloudy (Clear); Color,Urine Yellow (Yellow); Glucose,Urine (UA) Normal (Normal); Ketones,Urine Trace mg/dL (Negative); Leukocyte Esterase,Urine Large (Negative); Nitrite,Urine Negative (Negative); PH,Urine 7.5 pH Units (5.0-8.0); Protein,Urine 30 mg/dL (Neg-Trace); Specific Gravity,Urine 1.021 (1.010-1.025); Urobilinogen,Urine Normal (Normal)
[2017-02-12 14:04] LABS: Bacteria,Urine Many per hpf (None-Few); Hyaline Casts,Urine Moderate per lpf (None-Few); RBC,Urine 0-3 per hpf (0-3); Squamous Epithelial Cell,Urine Many per lpf (None-Few)
[2017-02-12 14:16] LABS: Basophils # 0.1 K/mcL (0.0-0.2); Basophils % 0.8 %; Eosinophils # 0.2 K/mcL (0.0-0.6); Eosinophils % 1.7 %; Hemoglobin 15.3 g/dL (11.5-15.4); Immature Granulocytes % 0.3 % (0-4); Lymphocytes # 2.1 K/mcL (0.6-4.6); Lymphocytes % 20.8 %; Mean Corpuscular HGB Conc 31.2 g/dL (31.6-35.5); Mean Corpuscular Hemoglobin 28.7 pg (28.0-33.3); Mean Corpuscular Volume 91.8 fL (83.0-100.0); Mean Platelet Volume 12.4 fL (9.4-12.4); Monocytes # 0.6 K/mcL (0.0-1.3); Monocytes % 5.6 %; Platelet Count 204 K/mcL (140-400); Red Blood Count 5.34 M/mcL (3.82-4.97); Red Cell Distribution Width 12.8 % (11.5-14.5); Segmented Neutrophils % 70.8 %
[2017-02-12 14:27] LABS: Potassium 4.4 mEq/L (3.5-4.5)
[2017-02-12] MEDS ORDERED: Ondansetron 4 MG/2 ML VIAL IVP PRN (17:18)
[2017-02-12] MEDS ORDERED: Naloxone 0.4 MG/ML INJ IVP PRN (17:18)
[2017-02-12] MEDS ORDERED: Acetaminophen 325 MG TABLET PO PRN (17:18)
[2017-02-12] MEDS ORDERED: *HR* LORazepam 2 MG/ML VIAL IVP PRN (17:21)
[2017-02-12] MEDS ORDERED: *HR* LORazepam 2 MG/ML VIAL IVP ONE (17:54)
--- NOTE | 2017-02-12 17:54 | Internal Med History&Physical ---
<Micah Roberts - Last Filed: 02/12/17 18:32> Date of Encounter: 02/12/17 Time of Encounter: 17:00 Assessment and Plan (1) UTI (urinary tract infection) Current visit: Yes Status: Acute Assess: Patient reports she has been dizzy, had reduced urine output, and redness in the genital area. Home health nurse states the patient seems dehydrated more than normal. Patient also has history of UTIs. Patient was last seen in the ED on 01/22/17 for UTI and hydration and discharged home on Keflex, however insurance would not cover continuation of Keflex. Patient's PCP also prescribes maintenance antibiotics (Keflex) for her chronic UTIs. Plan: Blood cultures ordered Urine cultures ordered IV ceftriaxone 1,000 mg daily ordered for infection coverage Monitor I&O Monitor daily weight Monitor patient and vital signs and watch for increased signs of neurological decline Falls precautions/bed rest with bathroom privileges/fs-adlm-wccaqh status due to confusion/dizziness Qualifiers: Urinary tract infection type: site unspecified Hematuria presence: without hematuria Qualified Code(s): N39.0 - Urinary tract infection, site not specified (2) Confusion Current visit: Yes Status: Acute Assess: Patient presents with increased confusion/altered mental status which patient's son reports has worsened within the past several days. Plan: Urine cultures ordered Blood cultures ordered Ativan 0.5 mg. ONCE ordered for agitation related to confusion Monitor patient and vital signs and watch for increased signs of neurological decline Falls precautions/bed rest with bathroom privileges/oy-fvhp-dytmoi status due to confusion/dizziness (3) AMANDA (acute kidney injury) Current visit: No Status: Acute Assess: Patient's GFR is 45 which is below her baseline of >60 several months ago and suggestive of acute kidney injury due to dehydration status. Plan: IV fluids 0.9 NS ordered at 75 mL/HR Monitor I&O Monitor daily weight (4) Dizziness Current visit: Yes Status: Acute Assess: Patient presents with dizziness related to current dehydration status and possible UTI. Plan: Falls precautions ordered Bed rest with bathroom privileges with assist Oq-reox-bqnuys status when out of bed (5) Hyperlipidemia Current visit: Yes Status: Chronic Assess: Patient presents with history of chronic hyperlipidemia. Plan: Lipid panel ordered Continue Lipitor Qualifiers: Hyperlipidemia type: unspecified Qualified Code(s): E78.5 - Hyperlipidemia , unspecified (6) HTN (hypertension) Current visit: Yes Status: Chronic Assess: Patient presents with history of chronic hypertension. Plan: Continue Lopressor, but hold if patient's BP <140/90 Monitor patient and vital signs Qualifiers: Hypertension type: essential hypertension Qualified Code(s): I10 - Essential (primary) hypertension (7) DVT prophylaxis Current visit: Yes Status: Acute Assess: Patient to be placed on DVT prophylaxis per admission protocol and bedrest status. Plan: 30 mg Lovenox SQ ordered daily Internal Medicine - H&P: HPI Chief complaint: Oliguria/Possible UTI Admitted From: Emergency Dept Plans for Post Hospital Care: Home History of present illness: Ms. Humphries is a 81 year old female who presents from the ED with chief complaint of oliguria, altered mental status, and dehydration. Patient's son ( POA) patient lives by herself and has home health care come 7 days per week for approximately 40 hours per week. Patient has baseline dementia, so son provides much of her health history. Patient reports she has been dizzy, had reduced urine output, and redness in the genital area. Home health nurse states the patient seems dehydrated more than normal. Patient also has history of UTIs. Patient was last seen in the ED on 01/22/17 for UTI and hydration and discharged home on Keflex, however insurance would not cover continuation of Keflex. Patient's PCP also prescribes maintenance antibiotics (Keflex) for her chronic UTIs. Patient's son states that she has been experiencing diarrhea with constipation since being on the maintenance antibiotics. Patient has a history of dementia and currently takes Namenda and Aricept daily. Mrs. Humphries also has a history of HLD and HTN with periods of hypotension caused by the Lopressor. Lopressor is to be held if patient's BP <140/90 or vital signs show hypotension. Patient is at high risk due to chronic UTIs and and possible C. diff due to history of repeated antibiotic use. Patient is to be placed as observation status with blood and urine cultures ordered, IV ceftriaxone 1,000 mg daily ordered for UTI coverage, and falls precautions/bed rest with bathroom privileges/kj-qnzj-uxassg status due to confusion and history of falls. C. diff profile ordered. IV fluids 0.9 NS ordered at 75 mL/HR due to patient's GFR of 45 which is below her baseline of >60 several months ago and suggestive of acute kidney injury due to dehydration status. Patient can also become agitated with sundowner's syndrome, so 0.5 Ativan ordered PRN for agitation/anxiety. Patient to be monitored closely. Time spent with patient >40 minutes. 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) - Social History Smoking Status: Former smoker Smokeless Tobacco Status: No Alcohol use: none Drug use: none Occupational status: retired Current living situation: Home - Independent (Patient has home health care 7 days per week and help from her son) Activity Level: Uses cane/walker Recent Out of Country Travel Within the Last 8 Weeks: No Exposure or Possible Exposure to Illness During Travel: No - Family History Mother Living Status: Hx Family Cancer: Yes Sister Living Status: Hx Family Neurologic Disorders: Yes (dementia) Internal Medicine - H&P: Meds Albuterol Sulfate [Proair Hfa] 1 - 2 puff IH Q4-6H PRN 12/08/15 [History] Atorvastatin [Lipitor] 10 mg PO DAILY 12/08/15 [History] Donepezil [Aricept] 10 mg PO HS 12/08/15 [History] Loratadine [Claritin] 10 mg PO DAILY 12/08/15 [History] Metoprolol [Lopressor] 25 mg PO BID PRN 12/08/15 [History] Sertraline [Zoloft] 25 mg PO DAILY 12/08/15 [History] Memantine HCl [Namenda Xr] 14 mg PO DAILY 01/02/16 [History] Allergies aspirin [ASA] Allergy (Verified 02/12/17 13:23) Rash All Systems PM: A 10-system review of systems was performed and is negative for pertinent findings except as documented above in the HPI. - Constitutional Constitutional: as per HPI, falls - EENT Eyes: no change in vision, no discharge, no pain, no photophobia Ears: no ear discharge, no ear pain, no tinnitus Nose, mouth and throat: no dysphagia, no nasal discharge, no neck pain, no sore throat - Breasts Breasts: as per HPI - Cardiovascular Cardiovascular ROS IM: no chest pain, no diaphoresis, no dyspnea, no lightheadedness, no palpitations, no syncope - Respiratory Respiratory: no cough, no dyspnea, no wheezing, no excessive phlegm production - Gastrointestinal Gastrointestinal: as per HPI, diarrhea, no abdominal pain, no hematemesis, no hematochezia, no melena, no nausea, no vomiting - Genitourinary Genitourinary: no change in urinary stream, no dysuria, no flank pain, no hematuria Menstruation: as per HPI, post hysterectomy - Musculoskeletal Musculoskeletal ROS IM: no numbness, no tingling - Integumentary Integumentary IM: no rash, no unusual bruising - Neurological Neurological ROS: as per HPI, confusion, no convulsions, no focal weakness, no numbness, no tingling, no tremor(s) - Psychiatric Psychiatric: as per HPI, anxiety - Endocrine Endocrine IM: as per HPI - Hematologic/Lymphatic Hematologic/Lymphatic: no easy bruising - Allergic/Immunologic Allergic/Immunologic: as per HPI - Constitutional Vitals: Temp Pulse Resp BP Pulse Ox 98.1 F 90 18 148/76 95 02/12/17 13:25 02/12/17 15:30 02/12/17 15:30 02/12/17 15:30 02/12/17 15:30 General appearance: Present: cooperative, A&O X 2, pleasant, no acute distress, underweight, answers questions appropriately (With assistance from her son) - Head Head exam: Present: atraumatic, normocephalic - Eye Eye exam: Present: PERRL, conjuntiva pink, sclera anicteric Pupils: Present: PERRL - ENT ENT exam: Present: mucous membranes dry, normal exam - Neck Neck exam general surgery: Present: supple, trachea midline. Absent: lymphadenopathy - Respiratory Respiratory exam: Present: CTAB. Absent: accessory muscle use, rales, rhonchi, wheezes - Cardiovascular Cardiovascular exam: Present: RRR, +S1, +S2. Absent: diastolic murmur, gallop, rubs, systolic murmur - GI/Abdominal GI/Abdominal exam: Present: normal bowel sounds, soft, no peritoneal signs. Absent: distended, tenderness - Rectal Rectal exam: Present: deferred - Additional comments: exam deferred. - Extremities Exam Extremities exam: Present: warm, radial pulses palpable and symetrical. Absent : calf tenderness, cyanotic, pedal edema - Back Exam Back exam: Present: normal inspection - Neurological Exam Neurological exam: Present: altered, CN II-XII intact. Absent: pronater drift, facial droop, speech deficit - Psychiatric Psychiatric exam: Present: agitated (Patient can become agitated late at night) , normal affect, normal mood - Skin Skin exam: Present: dry, intact Internal Med - H&P Results - Labs CBC & Chem 7: 02/12/17 14:08 02/12/17 14:08 Labs: Short CBC 02/12/17 Range/Units 14:08 WBC 9.8 (4.3-11.1) K/mcL Hgb 15.3 (11.5-15.4) g/dL Hct 49.0 H (35.3-44.9) % Plt Count 204 (140-400) K/mcL Neutrophils # 7.0 (1.6-8.9) K/mcL BMP 02/12/17 14:08 Sodium 147 H Potassium 4.4 Chloride 108 Carbon Dioxide 27 BUN 19 Creatinine 1.13 H Glucose 123 H Calcium 10.0 Cardiac Enzymes 02/12/17 Range/Units 14:08 Troponin I 0.00 (0-0.03) ng/mL Urine 02/12/17 Range/Units 13:55 Urine Color Yellow (Yellow) Urine Clarity Cloudy A (Clear) Urine pH 7.5 (5.0-8.0) pH Units Ur Specific [place] 1.021 (1.010-1.025) Urine Protein 30 H (Neg-Trace) mg/dL Urine Glucose (UA) Normal (Normal) mg/dL - EKG Data EKG shows normal: sinus rhythm Rate: normal - EKG Data Prior EKG available for review: yes When compared to previous EKG: there is no significant change EKG comments: 02/12/17 18:04 EKG dated 01/22/17 shows sinus rhythm with indeterminate axis. EKG dated 02/12/17 shows sinus rhythm with indeterminate axis. - Impressions ITS Impressions Chest X-Ray 02/12/17 15:11 IMPRESSION: No acute process. D/ / Nathan Richardson MD / Nathan Richardson MD Interpreting Provider: Nathan Richardson MD Head CT 02/12/17 15:11 IMPRESSION: 1. No acute intracranial abnormality. 2. 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 3. Stable chronic small vessel ischemic white matter disease. 4. Mild bilateral mastoid disease. D/ / 02/12/2017 16:05:59 Chilango Friedman MD / sahara Interpreting Provider: Chilango Friedman MD - Diagnostic Studies Chest x-ray Additional comments: Impressions Chest X-Ray 02/12/17 15:11 IMPRESSION: No acute process. D/ / Nathan Richardson MD / Nathan Richardson MD Interpreting Provider: Nathan Richardson MD CT scan - head Additional comments: Impressions Head CT 02/12/17 15:11 IMPRESSION: 1. No acute intracranial abnormality. 2. 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 3. Stable chronic small vessel ischemic white matter disease. 4. Mild bilateral mastoid disease. D/ / 02/12/2017 16:05:59 Chilango Friedman MD / sahara Interpreting Provider: Chilango Friedman MD <Amina Tripathi - Last Filed: 02/12/17 19:33> Date of Encounter: 02/12/17 Internal Medicine - H&P: HPI History of present illness: Ms. Humphries is a 81 year old female All Systems PM: A 10-system review of systems was performed and is negative for pertinent findings except as documented above in the HPI. - Constitutional Vitals: Temp Pulse Resp BP Pulse Ox 98.1 F 90 18 148/115 95 02/12/17 13:25 02/12/17 15:30 02/12/17 18:40 02/12/17 18:40 02/12/17 15:30 Internal Med - H&P Results - Labs CBC & Chem 7: 02/12/17 14:08 02/12/17 14:08 - Attending Attestation I examined this patient and reviewed laboratory, imaging and all diagnostic data. My medical decision-making was reviewed with Micah Roberts - SAURABH. I agree with the documented findings, disposition and treatment plan as described above. History and exam by me shows: patient with dementia. son is at bedside and reports that patient has frequent UTI due to poor higiene and decrease oral intake. She was [facility] the past but due to bad behavior she was discharged to home (she will kick staff and even throw feces to them). Admitted for UTI. started on Iv ceftriaxone. son reports that only IV antibiotics work for her UTIs and if she is send hoe on oral antibiotics she will fail and come back.
[2017-02-12] MEDS ORDERED: *HR* LORazepam 0.5 MG TABLET PO PRN (20:39)
[2017-02-12] MEDS: 0.9 % Sodium Chloride 1,000 ML IVC SCH (22:05)
[2017-02-12] MEDS: *HR* LORazepam 2 MG/ML VIAL IVP PRN (22:08)
[2017-02-13 05:31] LABS: Basophils # 0.1 K/mcL (0.0-0.2); Basophils % 0.9 %; Eosinophils # 0.2 K/mcL (0.0-0.6); Eosinophils % 3.3 %; Hematocrit 38.2 % (35.3-44.9); Immature Granulocytes % 0.3 % (0-4); Lymphocytes # 1.8 K/mcL (0.6-4.6); Lymphocytes % 28.7 %; Mean Corpuscular HGB Conc 30.9 g/dL (31.6-35.5); Mean Corpuscular Hemoglobin 28.4 pg (28.0-33.3); Mean Platelet Volume 12.5 fL (9.4-12.4); Monocytes # 0.6 K/mcL (0.0-1.3); Monocytes % 8.9 %; Neutrophils # 3.7 K/mcL (1.6-8.9); Platelet Count 143 K/mcL (140-400); Red Blood Count 4.15 M/mcL (3.82-4.97); Red Cell Distribution Width 12.7 % (11.5-14.5); Segmented Neutrophils % 57.9 %
[2017-02-13 05:34] LABS: Hemoglobin 11.8 g/dL (11.5-15.4)
[2017-02-13 05:41] LABS: Alanine Aminotransferase < 6 Units/L (0-55); Albumin 2.9 g/dL (3.5-5.0); Albumin/Globulin Ratio 1.2 (1.1-2.2); Alkaline Phosphatase 84 Units/L (38-126); Aspartate Amino Transferase 15 Units/L (5-34); BUN/Creatinine Ratio 16 (6-26); Bilirubin,Total 0.3 mg/dL (0.2-1.2); Blood Urea Nitrogen 13 mg/dL (7-20); Calcium 8.2 mg/dL (8.6-10.8); Carbon Dioxide 24 mEq/L (19-29); Chloride 115 mEq/L (98-109); Chol/HDL Ratio 2.5 (0-4.9); Cholesterol 122 mg/dL (< 200); Globulin 2.4 g/dL (2.4-3.5); Glucose 92 mg/dL (70-99); HDL Cholesterol 48 mg/dL (40-59); LDL Cholesterol,Calculated 52 mg/dL (0-99); Magnesium 1.6 mg/dL (1.6-2.6); Osmolality,Calculated 300 (280-300); Potassium 3.6 mEq/L (3.5-4.5); Sodium 145 mEq/L (136-145); Total Protein 5.3 g/dL (6.0-8.3); Triglycerides 112 mg/dL (< 150); eGFR For African Americans > 60 (> 60); eGFR For Non-African Americans > 60 (> 60)
[2017-02-13] MEDS ORDERED: *HR* Enoxaparin 30 MG/0.3 ML SYRINGE SQ SCH (06:00)
[2017-02-13] MEDS: Loratadine 10 MG TABLET PO SCH (09:11)
[2017-02-13] MEDS: (Memantine Hcl [Namenda Xr] 14 MG) PO SCH (09:12)
[2017-02-13] MEDS: Pantoprazole 40 MG VIAL IVP SCH (09:12)
--- NOTE | 2017-02-13 11:40 | Internal Med Progress Note ---
Date of Encounter: 02/13/17 Time of Encounter: 11:38 - Assessment and plan (1) UTI (urinary tract infection) Current Visit: Yes Status: Acute Assessment and plan: urine cx growing gram neg will conitnue IVceftriaxone, does not have fever or leucocytosis will follow final urine cx results Qualifiers: Urinary tract infection type: site unspecified Hematuria presence: without hematuria Qualified Code(s): N39.0 - Urinary tract infection, site not specified (2) Confusion Current Visit: Yes Status: Acute Assessment and plan: demented at baseline. no agitation or psychosis. will continue to monitro lives with son (3) Hyperlipidemia Current Visit: Yes Status: Chronic Assessment and plan: continue home meds Qualifiers: Hyperlipidemia type: unspecified Qualified Code(s): E78.5 - Hyperlipidemia , unspecified (4) Dementia Current Visit: No Status: Chronic Assessment and plan: baseline demented, no mood or behavioral changes. fall risk Qualifiers: Dementia type: unspecified type Dementia behavioral disturbance: without behavioral disturbance Qualified Code(s): F03.90 - Unspecified dementia without behavioral disturbance - Subjective Interval history: admittted for confusion and UTI baseline demneted, h/o uti in the past denies any urinary complains, no fever or leucocytosis - Constitutional Vitals: Temp Pulse Resp BP Pulse Ox 98.0 F 82 16 157/80 97 02/13/17 11:18 02/13/17 11:18 02/13/17 11:18 02/13/17 11:18 02/13/17 11:18 General appearance: Present: cooperative, A&O X 2, pleasant, no acute distress, underweight, answers questions appropriately (With assistance from her son) Exam: - Head Head exam: Present: atraumatic, normocephalic - Eye Eye exam: Present: PERRL, conjuntiva pink, sclera anicteric Pupils: Present: PERRL - ENT ENT exam: Present: mucous membranes dry, normal exam - Neck Neck exam general surgery: Present: supple, trachea midline. Absent: lymphadenopathy - Respiratory Respiratory exam: Present: CTAB. Absent: accessory muscle use, rales, rhonchi, wheezes - Cardiovascular Cardiovascular exam: Present: RRR, +S1, +S2. Absent: diastolic murmur, gallop, rubs, systolic murmur - GI/Abdominal GI/Abdominal exam: Present: normal bowel sounds, soft, no peritoneal signs. Absent: distended, tenderness - Extremities Exam Extremities exam: Present: warm, radial pulses palpable and symetrical. Absent : calf tenderness, cyanotic, pedal edema - Back Exam Back exam: Present: normal inspection - Neurological Exam Neurological exam: Present: altered, CN II-XII intact. Absent: pronater drift, facial droop, speech deficit - Psychiatric Psychiatric exam: Present: agitated (Patient can become agitated late at night) , normal affect, normal mood - Skin Skin exam: Present: dry, intact Internal Medicine: Result - Labs CBC & Chem 7: 02/13/17 05:01 02/13/17 05:01 Labs: Short CBC 02/13/17 Range/Units 05:01 WBC 6.4 (4.3-11.1) K/mcL Hgb 11.8 D (11.5-15.4) g/dL Hct 38.2 (35.3-44.9) % Plt Count 143 (140-400) K/mcL Neutrophils # 3.7 (1.6-8.9) K/mcL BMP 02/13/17 05:01 Sodium 145 Potassium 3.6 Chloride 115 H Carbon Dioxide 24 BUN 13 Creatinine 0.83 Glucose 92 Calcium 8.2 L D Liver Function 02/13/17 Range/Units 05:01 Total Bilirubin 0.3 (0.2-1.2) mg/dL AST 15 (5-34) Units/L ALT < 6 (0-55) Units/L Alkaline Phosphatase 84 (38-126) Units/L Albumin 2.9 L (3.5-5.0) g/dL Consult Discharge Plan - Plan Referrals: Michel Lopez MD [Primary Care Provider] -
[2017-02-13] MEDS: 0.9 % Sodium Chloride 1,000 ML IVC SCH (12:10)
[2017-02-13] MEDS: *HR* LORazepam 2 MG/ML VIAL IVP PRN (16:18)
[2017-02-13] MEDS ORDERED: *HR* LORazepam 2 MG/ML VIAL IM STA (22:27)
[2017-02-13] MEDS ORDERED: *HR* LORazepam 2 MG/ML VIAL ONE (22:31)
[2017-02-14] MEDS: 0.9 % Sodium Chloride 1,000 ML IVC SCH ×2 (01:53→12:12)
[2017-02-14] MEDS ORDERED: *HR* Enoxaparin 40 MG/0.4 ML SYRINGE SQ SCH (06:00)
[2017-02-14] MEDS: Loratadine 10 MG TABLET PO SCH (08:15)
[2017-02-14] MEDS: Pantoprazole 40 MG VIAL IVP SCH (08:15)
[2017-02-14] MEDS: (Memantine Hcl [Namenda Xr] 14 MG) PO SCH (08:15)
--- NOTE | 2017-02-14 09:43 | Electrocardiograph Report ---
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
--- NOTE | 2017-02-14 14:59 | Discharge Summary ---
Date of Encounter: 02/14/17 Time of Encounter: 14:56 - Discharge Diagnosis (1) UTI (urinary tract infection) Priority: Primary Status: Acute Qualifiers: Urinary tract infection type: site unspecified Hematuria presence: without hematuria Qualified Code(s): N39.0 - Urinary tract infection, site not specified (2) Confusion Priority: Secondary Status: Acute (3) Hyperlipidemia Priority: Secondary Status: Chronic Qualifiers: Hyperlipidemia type: unspecified Qualified Code(s): E78.5 - Hyperlipidemia , unspecified (4) Dementia Priority: Secondary Status: Chronic Qualifiers: Dementia type: unspecified type Dementia behavioral disturbance: without behavioral disturbance Qualified Code(s): F03.90 - Unspecified dementia without behavioral disturbance - Discharge Medications Prescriptions: Cefdinir [Omnicef] 300 mg PO BID #10 capsule Home Medications: Albuterol Sulfate [Proair Hfa] 1 - 2 puff IH Q4-6H PRN 12/08/15 [History] Atorvastatin [Lipitor] 10 mg PO DAILY 12/08/15 [History] Donepezil [Aricept] 10 mg PO HS 12/08/15 [History] Loratadine [Claritin] 10 mg PO DAILY 12/08/15 [History] Metoprolol [Lopressor] 25 mg PO BID PRN 12/08/15 [History] Sertraline [Zoloft] 25 mg PO DAILY 12/08/15 [History] Memantine HCl [Namenda Xr] 14 mg PO DAILY 01/02/16 [History] Cefdinir [Omnicef] 300 mg PO BID #10 capsule 02/14/17 [Rx] Allergies/Adverse Reactions: Allergies aspirin [ASA] Allergy (Verified 02/12/17 13:23) Rash Date of admission: 02/12/17 17:45 Primary care physician: Michel Lopez MD Consults: 02/14/17 09:11 Consult to Physical Therapy [CONS] Routine Comment: Evaluate, develop and implement POC Reason for Consult: evaluate for home needs 02/14/17 09:12 Consult to Occupational Therapy [CONS] Routine Comment: Evaluate, develop and implement POC Reason for Consult: evaluate for home needs 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 Humphries is a 81 year old female who presents from the ED with chief complaint of oliguria, altered mental status, and dehydration. Patient's son ( CLAUDIOA) patient lives by herself and has home health care come 7 days per week for approximately 40 hours per week. Patient has baseline dementia, so son provides much of her health history. Patient reports she has been dizzy, had reduced urine output, and redness in the genital area. Home health nurse states the patient seems dehydrated more than normal. Patient also has history of UTIs. Patient was last seen in the ED on 01/22/17 for UTI and hydration and discharged home on Keflex, however insurance would not cover continuation of Keflex. she also had mid AMANDA on presentation. she was started on IV antibiotics , no fever or leucocytosis. urine cx grew E. coli and she was dc home on oral cefdinir to complete 7 days of treatment. bedside PT/OT was consulted who recommneded ECF however shaunna son refused to send her to ECF, [facility] Hospital course: Ms. Humphries is a 81 year old female - Time Spent with Patient Total time spent providing and/or coordinating discharge services: - Constitutional Vitals: Temp Pulse Resp BP Pulse Ox 97.6 F 68 16 148/86 95 02/14/17 10:04 02/14/17 12:38 02/14/17 12:38 02/14/17 12:38 02/14/17 12:38 General appearance: Present: cooperative, A&O X 2, pleasant, no acute distress, underweight, answers questions appropriately (With assistance from her son) Exam: - Head Head exam: Present: atraumatic, normocephalic - Eye Eye exam: Present: PERRL, conjuntiva pink, sclera anicteric Pupils: Present: PERRL - ENT ENT exam: Present: mucous membranes dry, normal exam - Neck Neck exam general surgery: Present: supple, trachea midline. Absent: lymphadenopathy - Respiratory Respiratory exam: Present: CTAB. Absent: accessory muscle use, rales, rhonchi, wheezes - Cardiovascular Cardiovascular exam: Present: RRR, +S1, +S2. Absent: diastolic murmur, gallop, rubs, systolic murmur - GI/Abdominal GI/Abdominal exam: Present: normal bowel sounds, soft, no peritoneal signs. Absent: distended, tenderness - Extremities Exam Extremities exam: Present: warm, radial pulses palpable and symetrical. Absent : calf tenderness, cyanotic, pedal edema - Back Exam Back exam: Present: normal inspection - Neurological Exam Neurological exam: Present: altered, CN II-XII intact. Absent: pronater drift, facial droop, speech deficit - Psychiatric Psychiatric exam: Present: agitated (Patient can become agitated late at night) , normal affect, normal mood - Skin Skin exam: Present: dry, intact
[2017-02-14 16:40] VITALS: BP 152/78
--- NOTE | 2017-02-14 16:45 | Physician Discharge Referral ---
Home Health/Hosp Referral Info Transfer to: Home Health Attending Provider: monica tavarez - Diagnosis (1) UTI (urinary tract infection) Status: Acute (2) Confusion Status: Acute (3) Hyperlipidemia Status: Chronic (4) Dementia Status: Chronic - Respiratory Orders Smoking Cessation: Smoking cessation has been advised. For more information, call the [place] Tobacco Quit Line at 4-184-MNVI-NOW. - Diet/Nutrition Diet/Nutrition Orders: Regular - Activity Activity Orders: Ambulate, Chair, Walker - Services Needed Following services are medically necessary services: Nursing, Home Health Aide, Physical Therapy, Occupational Therapy - Transfer Medications Prescriptions: Cefdinir [Omnicef] 300 mg PO BID #10 capsule Home Medications: Albuterol Sulfate [Proair Hfa] 1 - 2 puff IH Q4-6H PRN 12/08/15 [History] Atorvastatin [Lipitor] 10 mg PO DAILY 12/08/15 [History] Donepezil [Aricept] 10 mg PO HS 12/08/15 [History] Loratadine [Claritin] 10 mg PO DAILY 12/08/15 [History] Metoprolol [Lopressor] 25 mg PO BID PRN 12/08/15 [History] Sertraline [Zoloft] 25 mg PO DAILY 12/08/15 [History] Memantine HCl [Namenda Xr] 14 mg PO DAILY 01/02/16 [History] Cefdinir [Omnicef] 300 mg PO BID #10 capsule 02/14/17 [Rx] Allergies/Adverse Reactions: Allergies aspirin [ASA] Allergy (Verified 02/12/17 13:23) Rash Certification: Further, I certify that my clinical findings support that this patient is homebound (i.e. absences from home require considerable and taxing effort and are for medical reasons or nondenominational services or infrequently or short duration when for other reasons) because: Homebound Reason: Patient requires assistance of a person or device to safely leave home Attestation: My signature below is to certify that this patient is under my care and that I, or nurse practitioner, or a physician's registered nurse first assistant working with me, has a face-to -face encounter with this patient.
== END 2017-02-14 17:04 | disposition home health service (06) | DRG 690 ==
LOC: 3ANU 13:21 → EMEROO 13:21 → 3ANU 18:41
PROVIDERS: ADMIT Internal Medicine Endocrinology, Diabetes & Metabolism; ATTEND Internal Medicine Endocrinology, Diabetes & Metabolism

== ENCOUNTER 2017-09-04 15:49 | Observation (INO) ==
--- NOTE | 2017-09-04 17:16 | Emergency Department Note ---
Disposition Clinical Impression: Syncope Qualifiers: Syncope type: unspecified Qualified Code(s): R55 - Syncope and collapse Disposition: Admitted As Inpatient Condition: Fair Referrals: Donell Apodaca, [facility] [facility] [Primary Care Provider] - Syncope HPI - General Chief Complaint: ED Syncope Stated Complaint: syncope Time Seen by Provider: 09/04/17 15:52 Source: family Limitations: no limitations Nursing Notes Reviewed: Yes Vital Signs Reviewed: Yes - History of Present Illness HPI Narrative: Patient is brought in by son for evaluation of syncope. Patient was having a coughing episode earlier in the day when she slipped over and was unresponsive for approximately 2 minutes. Patient does not remember any of the episode. Patient states that she feels fine now. Patient has not had a previous cough or other infectious symptoms at this time. Patient has not had any other episodes of syncope. Patient will undergo further evaluation for syncope and will likely need admission. - Related Data Home Medications Medication Instructions Recorded Confirmed Albuterol Sulfate [Proair Hfa] 1 - 2 puff IH Q4-6H PRN 12/08/15 02/12/17 Atorvastatin [Lipitor] 10 mg PO DAILY 12/08/15 02/12/17 Donepezil [Aricept] 10 mg PO HS 12/08/15 02/12/17 Loratadine [Claritin] 10 mg PO DAILY 12/08/15 02/12/17 Metoprolol [Lopressor] 25 mg PO BID PRN 12/08/15 02/12/17 Sertraline [Zoloft] 25 mg PO DAILY 12/08/15 02/12/17 Memantine HCl [Namenda Xr] 14 mg PO DAILY 01/02/16 02/12/17 Previous Rx's Medication Instructions Recorded Cefdinir [Omnicef] 300 mg PO BID #10 capsule 02/14/17 Allergies Allergy/AdvReac Type Severity Reaction Status Date / Time aspirin [ASA] Allergy Rash Verified 05/23/17 09:48 Review of Systems: CONSTITUTIONAL: No weight loss, fever, chills, weakness or fatigue. HEENT: Eyes: No visual changes. Ears, Nose, Throat: No hearing loss, difficulty talking or unable to swallow. SKIN: No rash or itching. CARDIOVASCULAR: Syncope No chest pain, chest pressure or chest discomfort. No palpitations or edema. RESPIRATORY: No shortness of breath, cough or sputum. GASTROINTESTINAL: No anorexia, nausea, vomiting or diarrhea. No abdominal pain or blood. GENITOURINARY: No burning on urination or hematuria. NEUROLOGICAL: No headache, dizziness, paralysis, ataxia, numbness or tingling in the extremities. No change in bowel or bladder control. MUSCULOSKELETAL: No muscle pain, back pain, joint pain or stiffness. Past Medical History - Past Medical History Medical history: Reports: COPD, dementia, valvular heart disease Surgical history: Reports: hysterectomy, orthopedic, other Psychiatric history: Reports: no psych history LOW HEEL BUILDER history: Reports: no LOW HEEL BUILDER history - Social History Smoking Status: Former smoker Smokeless Tobacco Status: No Alcohol use: Reports: none Drug use: Reports: none Physical Exam General: Cachectic, nontoxic, no acute distress Head: Normocephalic Atraumatic Eyes: PERRL, EOMI ENT: Airway patent, no stridor Neck: supple, no meningismus Chest: Lungs clear to auscultation bilateral Cardiac: Regular rate and rhythm, no murmurs, rubs or gallops Abdomen: soft, nontender, nondistended; no guarding, rebound, or tenderness to percussion Musculoskeletal: Calves symmetric, nontender, no palpable cord Skin: No rash, normal skin tone Neuro: Alert and Oriented to person, place, and time; No focal deficit, CN 2-12 symmetric and intact - General Limitations: no limitations General appearance: alert, in no apparent distress Course - Reevaluation(s) Reevaluation #1: Blood work is unremarkable. Patient has a worrisome syncope story. Patient will be brought in for further evaluation of syncope. - Consultations Consultation #1: Discussed with hospitalist, Dr. alcaraz, request head CT. Admission accepted. Vital Signs Temperature 97.6 F 09/04/17 15:52 Pulse Rate 91 09/04/17 15:52 Respiratory Rate 18 09/04/17 15:52 Blood Pressure 144/102 09/04/17 15:52 O2 Sat by Pulse Oximetry 96 09/04/17 15:52 Temperature 97.6 F 09/04/17 15:52 Pulse Rate 92 09/04/17 17:57 Respiratory Rate 16 09/04/17 17:57 Blood Pressure 131/98 09/04/17 17:57 O2 Sat by Pulse Oximetry 95 09/04/17 17:57 Oxygen Delivery Oxygen Delivery Room Air Syncope - Medical Records Medical records reviewed: Yes I reviewed the patient's medical records. - Lab Data Lab results reviewed: Yes I reviewed the patient's lab results. Result diagrams: 09/04/17 17:23 09/04/17 17:23 Lab Results 09/04/17 09/04/17 09/04/17 Range/Units 17:23 17:23 17:23 WBC 9.7 (4.3-11.1) K/mcL RBC 4.72 (3.82-4.97) M/mcL Hgb 13.8 (11.5-15.4) g/dL Hct 43.1 (35.3-44.9) % MCV 91.3 (83.0-100.0) fL MCH 29.2 (28.0-33.3) pg MCHC 32.0 (31.6-35.5) g/dL RDW 12.9 (11.5-14.5) % Plt Count 151 (140-400) K/mcL MPV 12.1 (9.4-12.4) fL Immature Gran % 0.4 (0-4) % Seg Neutrophils % 80.0 % Lymphocytes % 8.8 % Monocytes % 10.2 % Eosinophils % 0.1 % Basophils % 0.5 % Neutrophils # 7.7 (1.6-8.9) K/mcL Lymphocytes # 0.9 (0.6-4.6) K/mcL Monocytes # 1.0 (0.0-1.3) K/mcL Eosinophils # 0.0 (0.0-0.6) K/mcL Basophils # 0.1 (0.0-0.2) K/mcL Immature Plt Fraction 7.1 H (1.1-6.1) % Sodium 143 (136-145) mEq/L Potassium 3.8 (3.5-5.1) mEq/L Chloride 107 (98-107) mEq/L Carbon Dioxide 28 (23-29) mEq/L BUN 16 (8-23) mg/dL Creatinine 1.03 (0.60-1.20) mg/dL Est GFR ( Amer) > 60 (> 60) Est GFR (Non-Af Amer) 51 L (> 60) BUN/Creatinine Ratio 16 (6-26) Glucose 99 (70-105) mg/dL Calculated Osmolality 297 (280-300) Calcium 9.1 (8.6-10.3) mg/dL Troponin I 0.03 (< 0.04) ng/mL TSH (0.340-5.600) mcIU/mL 09/04/17 Range/Units 17:23 WBC (4.3-11.1) K/mcL RBC (3.82-4.97) M/mcL Hgb (11.5-15.4) g/dL Hct (35.3-44.9) % MCV (83.0-100.0) fL MCH (28.0-33.3) pg MCHC (31.6-35.5) g/dL RDW (11.5-14.5) % Plt Count (140-400) K/mcL MPV (9.4-12.4) fL Immature Gran % (0-4) % Seg Neutrophils % % Lymphocytes % % Monocytes % % Eosinophils % % Basophils % % Neutrophils # (1.6-8.9) K/mcL Lymphocytes # (0.6-4.6) K/mcL Monocytes # (0.0-1.3) K/mcL Eosinophils # (0.0-0.6) K/mcL Basophils # (0.0-0.2) K/mcL Immature Plt Fraction (1.1-6.1) % Sodium (136-145) mEq/L Potassium (3.5-5.1) mEq/L Chloride (98-107) mEq/L Carbon Dioxide (23-29) mEq/L BUN (8-23) mg/dL Creatinine (0.60-1.20) mg/dL Est GFR ( Amer) (> 60) Est GFR (Non-Af Amer) (> 60) BUN/Creatinine Ratio (6-26) Glucose (70-105) mg/dL Calculated Osmolality (280-300) Calcium (8.6-10.3) mg/dL Troponin I (< 0.04) ng/mL TSH 4.694 (0.340-5.600) mcIU/mL - Radiology Data Radiology results reviewed: Yes I reviewed the patient's radiology results. - EKG Data EKG attestation: Yes I reviewed and interpreted this EKG. EKG results narrative: EKG shows sinus rhythm with a ventricular rate of 92. MI 143. QRS 78. QTC 419. Patient has occasional premature complexes. No ST elevations or depressions. Poor R-wave progression compared to previous EKG. Attestation Statement - Attestation Attestation: I examined this patient and my medical decision-making was reviewed with the Resident Physician, Dr. Parker. I agree with the documented findings, disposition and treatment plan as described except to the extent set forth below. Patient is an 81-year-old white female who presents to the emergency department by her son with concerns for syncopal episode today. This afternoon patient was having a coughing spell and slumped onto the ground and was unresponsive for approximately 2 minutes according to the son. Patient had no preceding symptoms to this syncopal episode with the exception of the cough. Patient does have a history of dementia. On arrival patient is a GCS equals 15, she is in no acute distress she is alert and oriented to person and place. Patient denies any symptoms and is asymptomatic at bedside. Patient's physical exam findings as documented. Vital signs are stable. EKG showed a normal sinus rhythm with no acute ischemia. X-ray was within normal limits. His labs as well as urinalysis were within normal limits although according to the son patient has been on a maintenance antibiotic for prevention of UTIs and this was stopped approximately one week ago and he was concerned that a possible infection could have contributed to her incident today. Patient with concerning story for syncope today and warrants further evaluation and management. Case was discussed with the hospitalist and patient will be admitted for further evaluation and treatment.
[2017-09-04] MEDS ORDERED: *HR* Morphine 2 MG/ML SYRINGE ONE (17:26)
[2017-09-04 17:32] LABS: Basophils # 0.1 K/mcL (0.0-0.2); Basophils % 0.5 %; Eosinophils % 0.1 %; Hematocrit 43.1 % (35.3-44.9); Hemoglobin 13.8 g/dL (11.5-15.4); Immature Granulocytes % 0.4 % (0-4); Immature Platelets 7.1 % (1.1-6.1); Lymphocytes # 0.9 K/mcL (0.6-4.6); Lymphocytes % 8.8 %; Mean Corpuscular Hemoglobin 29.2 pg (28.0-33.3); Mean Corpuscular Volume 91.3 fL (83.0-100.0); Mean Platelet Volume 12.1 fL (9.4-12.4); Monocytes % 10.2 %; Neutrophils # 7.7 K/mcL (1.6-8.9); Platelet Count 151 K/mcL (140-400); Red Blood Count 4.72 M/mcL (3.82-4.97); Red Cell Distribution Width 12.9 % (11.5-14.5)
[2017-09-04 17:48] LABS: BUN/Creatinine Ratio 16 (6-26); Blood Urea Nitrogen 16 mg/dL (8-23); Calcium 9.1 mg/dL (8.6-10.3); Carbon Dioxide 28 mEq/L (23-29); Chloride 107 mEq/L (98-107); Glucose 99 mg/dL (70-105); Osmolality,Calculated 297 (280-300); Potassium 3.8 mEq/L (3.5-5.1); Sodium 143 mEq/L (136-145); eGFR For African Americans > 60 (> 60); eGFR For Non-African Americans 51 (> 60)
[2017-09-04] MEDS ORDERED: Naloxone 0.4 MG/ML INJ IVP PRN (20:29)
--- NOTE | 2017-09-04 20:41 | Internal Med History&Physical ---
Date of Encounter: 09/04/17 Time of Encounter: 20:38 Assessment and Plan (1) Syncope Current visit: Yes Status: Acute Patient is reported as having a syncopal event while coughing this afternoon. No prior history of syncope, EKG shows NSR. Per auscultation patient is RRR, S1 , S2, no murmurs. She is hemodynamically stable and in no distress. No prior h /o arrhythmias. This appears to be a vasovagal syncope. Plan is a follows. TTE BL carotid Doppler Serial troponins Neuro check every shift Qualifiers: Syncope type: unspecified Qualified Code(s): R55 - Syncope and collapse (2) Dementia Current visit: Yes Status: Chronic Dementia at baseline, no changes in mental status at this time Resume Aricept 10 mg tablet daily Resume Namenda 14 mg capsule daily Qualifiers: Dementia type: unspecified type Dementia behavioral disturbance: without behavioral disturbance Qualified Code(s): F03.90 - Unspecified dementia without behavioral disturbance (3) HTN (hypertension) Current visit: No Status: Chronic Qualifiers: Hypertension type: essential hypertension Qualified Code(s): I10 - Essential (primary) hypertension (4) DVT prophylaxis Current visit: Yes Status: Acute Heparin 5000 units subcutaneous twice a day Internal Medicine - H&P: HPI Chief complaint: SYNCOPE Admitted From: Home Plans for Post Hospital Care: Home History of present illness: Ms. Humphries is a 81 year old female history of stage III renal disease, COPD, dementia, valvular heart disease, TIA and UTIs. Presents today following a syncopal event. Patient is demented and unable to provide history of present illness however her son is at bedside who is her primary water plant maintenance mechanic and is assisting with HPI. He reports that this afternoon she began to cough developed distress. He reports that she began to turn blue and passed. He does not believe she was choking during this time. Denies any recent history of cough, shortness of breath, sputum production, fevers, chills, chest pain. Past Med Surg Social Fam HX - Past Medical History Medical history: COPD, dementia, valvular heart disease Psychiatric history: no psych history - Past Surgical History Surgical History: hysterectomy, orthopedic, other - Social History Smoking Status: Former smoker Smokeless Tobacco Status: No Alcohol use: none Drug use: none - Family History Father Living Status: Mother Living Status: Hx Family Cancer: Yes (unknown) Sister Living Status: Hx Family Neurologic Disorders: Yes (dementia) Internal Medicine - H&P: Meds Albuterol Sulfate [Proair Hfa] 1 - 2 puff IH Q4-6H PRN 12/08/15 [History] Atorvastatin [Lipitor] 10 mg PO DAILY 12/08/15 [History] Donepezil [Aricept] 10 mg PO HS 12/08/15 [History] Loratadine [Claritin] 10 mg PO DAILY 12/08/15 [History] Metoprolol [Lopressor] 25 mg PO BID PRN 12/08/15 [History] Sertraline [Zoloft] 25 mg PO DAILY 12/08/15 [History] Memantine HCl [Namenda Xr] 14 mg PO DAILY 01/02/16 [History] Cefdinir [Omnicef] 300 mg PO BID #10 capsule 02/14/17 [Rx] 3 Allergy/AdvReac Type Severity Reaction Status Date / Time aspirin [ASA] Allergy Rash Verified 05/23/17 09:48 ROS unobtainable: due to mental status All Systems PM: A 10-system review of systems was performed and is negative for pertinent findings except as documented above in the HPI. Review of systems: Unable to obtain the review of systems as patient is demented. - Respiratory Respiratory: cough, no dyspnea, no hemoptysis, no dyspnea on exertion, no wheezing, no stridor, no pain on inspiration, no chest congestion, no excessive phlegm production, no change in phlegm color, no pain with cough - Constitutional Vitals: Temp Pulse Resp BP Pulse Ox 98.0 F 80 16 150/78 90 09/04/17 20:30 09/04/17 20:30 09/04/17 20:30 09/04/17 20:30 09/04/17 20:30 General appearance: Present: A&O X 1, no acute distress Exam: PHYSICAL EXAMINATION: GENERAL: The patient is a well-developed, well-nourished male in no apparent distress. He is alert and oriented x3. VITAL SIGNS: Temperature 98.0, pulse of 80, respiratory rate 16 and 94% on room air, but pressure 150/78 HEENT: Head is normocephalic and atraumatic. Extraocular muscles are intact. Pupils are equal, round, and reactive to light and accommodation. Nares appeared normal. Mouth is well hydrated and without lesions. Mucous membranes are moist. Posterior pharynx clear of any exudate or lesions. NECK: Supple. No carotid bruits. No lymphadenopathy or thyromegaly. LUNGS: Clear/diminished to auscultation. HEART: Regular rate and rhythm without murmur. ABDOMEN: Soft, nontender, and nondistended. Positive bowel sounds. No hepatosplenomegaly was noted. EXTREMITIES: Without any cyanosis, clubbing, rash, lesions or edema. NEUROLOGIC: Cranial nerves II through XII are grossly intact. PSYCHIATRIC: Flat affect, but denies suicidal or homicidal ideations. SKIN: No ulceration or induration present. Internal Med - H&P Results - Labs CBC & Chem 7: 09/04/17 17:23 09/04/17 17:23 - Diagnostic Studies Chest x-ray Status: image reviewed by me Additional comments: Stable exam CT scan - head Status: image reviewed by me Additional comments: No acute intracranial abnormality
[2017-09-05 03:50] LABS: Basophils # 0.1 K/mcL (0.0-0.2); Basophils % 0.6 %; Eosinophils % 0.2 %; Hematocrit 40.6 % (35.3-44.9); Hemoglobin 12.5 g/dL (11.5-15.4); Immature Granulocytes % 0.3 % (0-4); Lymphocytes # 1.8 K/mcL (0.6-4.6); Lymphocytes % 20.1 %; Mean Corpuscular HGB Conc 30.8 g/dL (31.6-35.5); Mean Corpuscular Hemoglobin 28.3 pg (28.0-33.3); Mean Corpuscular Volume 92.1 fL (83.0-100.0); Mean Platelet Volume 12.3 fL (9.4-12.4); Monocytes # 1.1 K/mcL (0.0-1.3); Monocytes % 11.7 %; Platelet Count 156 K/mcL (140-400); Red Blood Count 4.41 M/mcL (3.82-4.97); Red Cell Distribution Width 12.8 % (11.5-14.5); Segmented Neutrophils % 67.1 %
[2017-09-05 04:18] LABS: BUN/Creatinine Ratio 21 (6-26); Blood Urea Nitrogen 20 mg/dL (8-23); Calcium 8.7 mg/dL (8.6-10.3); Carbon Dioxide 25 mEq/L (23-29); Chloride 107 mEq/L (98-107); Glucose 85 mg/dL (70-105); Osmolality,Calculated 292 (280-300); Potassium 3.8 mEq/L (3.5-5.1); Sodium 140 mEq/L (136-145); eGFR For African Americans > 60 (> 60); eGFR For Non-African Americans 56 (> 60)
[2017-09-05] MEDS: *HR* Heparin 5,000 UNIT/ML VIAL SQ SCH ×2 (05:54→17:45)
[2017-09-05 06:08] LABS: Bilirubin,Urine Small (Negative); Blood,Urine Large (Negative); Clarity,Urine Turbid (Clear); Color,Urine Dark Yellow (Yellow); Glucose,Urine (UA) Normal (Normal); Ketones,Urine Trace mg/dL (Negative); Leukocyte Esterase,Urine Large (Negative); Nitrite,Urine Negative (Negative); PH,Urine 7.5 pH Units (5.0-8.0); Protein,Urine 100 mg/dL (Neg-Trace); Specific Gravity,Urine 1.023 (1.010-1.025); Urobilinogen,Urine Normal (Normal)
[2017-09-05 06:18] LABS: Amorphous Sediment,Urine Many (Few); Hyaline Casts,Urine None Seen per lpf (None-Few); Squamous Epithelial Cell,Urine Few per lpf (None-Few)
[2017-09-05 06:20] LABS: Bacteria,Urine Many per hpf (None-Few); RBC,Urine 0-3 per hpf (0-3); WBC,Urine 50-100 per hpf (0-3)
[2017-09-05] MEDS: cefTRIAXone 1,000 MG in Water for inj. (sterile) 20 ML 10 ML IVP SCH (10:01)
[2017-09-05] MEDS: Loratadine 10 MG TABLET PO SCH (10:02)
[2017-09-05] MEDS: NAMENDA 14 MG PO SCH (10:02)
--- NOTE | 2017-09-05 13:50 | Discharge Summary ---
Date of Encounter: 09/06/17 Time of Encounter: 13:48 - Discharge Diagnosis (1) Syncope Priority: Primary Status: Acute Comments: presented with syncope after coughing episode. Head CT nonacute. Serial troponin negative, bilateral carotid Dopplers with non-stenotic plaque. TTE with EF 55%, mild diastolic dysfunction. No symptom recurrence. Suspect vasovagal syncope. Qualifiers: Syncope type: vasovagal syncope Qualified Code(s): R55 - Syncope and collapse (2) UTI (urinary tract infection) Priority: Primary Status: Resolved Comments: UA indicative of UTI. No current urine culture available. Last urine culture with Escherichia coli sensitive to Macrobid. Received 2 doses IV ceftriaxone. Discharge home with macrobid Qualifiers: Urinary tract infection type: acute cystitis Hematuria presence: without hematuria Qualified Code(s): N30.00 - Acute cystitis without hematuria (3) Essential hypertension Priority: Primary Status: Acute Comments: per hx. BP controlled. Cont home BP medication (4) Dementia Priority: Secondary Status: Chronic Comments: per hx. Mentation at baseline. Qualifiers: Dementia type: unspecified type Dementia behavioral disturbance: without behavioral disturbance Qualified Code(s): F03.90 - Unspecified dementia without behavioral disturbance - Discharge Medications Prescriptions: Nitrofurantoin (BID) [Macrobid] 100 mg PO BID #12 capsule Home Medications: Atorvastatin [Lipitor] 10 mg PO DAILY 12/08/15 [History] Donepezil [Aricept] 10 mg PO DAILY 12/08/15 [History] Loratadine [Claritin] 10 mg PO DAILY 12/08/15 [History] Metoprolol [Lopressor] 25 mg PO PRN PRN 12/08/15 [History] Sertraline [Zoloft] 25 mg PO DAILY 12/08/15 [History] Memantine HCl [Namenda Xr] 14 mg PO DAILY 01/02/16 [History] Nitrofurantoin (BID) [Macrobid] 100 mg PO BID #12 capsule 09/05/17 [Rx] Allergies/Adverse Reactions: 3 Allergy/AdvReac Type Severity Reaction Status Date / Time aspirin [ASA] Allergy Rash Verified 05/23/17 09:48 Procedures/tests Complete & Pending: Procedures Performed prior 72 hours Category Date Time Status EKG [ECG 12 lead ECG] [ECG] Routine Y 09/04/17 20:35 Ordered EV carotid duplex imaging BI Routine Y 09/05/17 07:30 Completed EV echocardiogram Routine Y 09/05/17 07:30 Completed Date of admission: 09/04/17 19:19 Primary care physician: Donell Apodaca CNP Discharging clinician: Lesly Younger Anticipated date of discharge: 09/05/17 - Patient Status Disposition: Home Health Service Condition: Good Functional capacity at discharge: uses cane/walker Overall status at discharge: patient is back to baseline - Discharge Instructions Instructions: Nitrofurantoin (By mouth), Urinary Tract Infection in Women (GEN) Follow Up With: Donell Apodaca CNP [Primary Care Provider] - 09/13/17 11:20 am Forms: ED Satisfaction Letter - Diet and Activity Activity: increase activity as tolerated Diet: advance to your usual diet Interval History: Seen and examined at bedside, information obtained from mostly chart review as patient has severe dementia does not know details. She is pleasantly confused alert herself says she was to go home. Discussed with son at bedside and he feels patient is getting back to baseline. He feels scheduled taking her home. Awaiting echocardiogram and anticipate discharge home if unremarkable. Hospital course: See assessment and plan for hospital course - Time Spent with Patient Total time spent providing and/or coordinating discharge services: - Constitutional Vitals: Temp Pulse Resp BP Pulse Ox 98.2 F 54 16 109/56 96 09/05/17 10:57 09/05/17 10:57 09/05/17 10:57 09/05/17 10:57 09/05/17 10:57 General appearance: Present: A&O X 1, no acute distress - Head Head exam: Present: atraumatic, normocephalic - Eye Eye exam: Present: PERRL, conjuntiva pink, sclera anicteric Pupils: Present: PERRL - Neck Neck exam general surgery: Present: supple, trachea midline. Absent: lymphadenopathy - Respiratory Respiratory exam: Present: CTAB. Absent: accessory muscle use, rales, rhonchi, wheezes - Cardiovascular Cardiovascular exam: Present: RRR, +S1, +S2. Absent: diastolic murmur, gallop, rubs, systolic murmur - GI/Abdominal GI/Abdominal exam: Present: normal bowel sounds, soft, no peritoneal signs. Absent: distended, tenderness - Extremities Exam Extremities exam: Present: warm, radial pulses palpable and symmetrical. Absent : calf tenderness, cyanotic, pedal edema - Neurological Exam Neurological exam: Present: CN II-XII intact, oriented X3, no focal deficits. Absent: pronater drift, facial droop, speech deficit - Skin Skin exam: Present: dry, intact
[2017-09-06] MEDS: *HR* Heparin 5,000 UNIT/ML VIAL SQ SCH (04:46)
[2017-09-06] MEDS: Loratadine 10 MG TABLET PO SCH (10:04)
[2017-09-06] MEDS: cefTRIAXone 1,000 MG in Water for inj. (sterile) 20 ML 10 ML IVP SCH (10:05)
[2017-09-06] MEDS: NAMENDA 14 MG PO SCH (10:05)
[2017-09-06 10:23] VITALS: BP 120/76
--- NOTE | 2017-09-06 10:31 | Physician Discharge Referral ---
Home Health/Hosp Referral Info Transfer to: Home Health Attending Provider: Lesly Younger APRN - Diagnosis (1) Syncope Status: Acute (2) UTI (urinary tract infection) Status: Resolved (3) Essential hypertension Status: Acute (4) Dementia Status: Chronic - Respiratory Orders Smoking Cessation: Smoking cessation has been advised. For more information, call the [place] Tobacco Quit Line at 1-645-VDJH-NOW. - Diet/Nutrition Diet/Nutrition Orders: Regular - Activity Activity Orders: Walker - Services Needed Following services are medically necessary services: Nursing, Home Health Aide, Physical Therapy, Occupational Therapy - Transfer Medications Prescriptions: Nitrofurantoin (BID) [Macrobid] 100 mg PO BID #12 capsule Home Medications: Atorvastatin [Lipitor] 10 mg PO DAILY 12/08/15 [History] Donepezil [Aricept] 10 mg PO DAILY 12/08/15 [History] Loratadine [Claritin] 10 mg PO DAILY 12/08/15 [History] Metoprolol [Lopressor] 25 mg PO PRN PRN 12/08/15 [History] Sertraline [Zoloft] 25 mg PO DAILY 12/08/15 [History] Memantine HCl [Namenda Xr] 14 mg PO DAILY 01/02/16 [History] Nitrofurantoin (BID) [Macrobid] 100 mg PO BID #12 capsule 09/05/17 [Rx] Allergies/Adverse Reactions: 3 Allergy/AdvReac Type Severity Reaction Status Date / Time aspirin [ASA] Allergy Rash Verified 05/23/17 09:48 Certification: Further, I certify that my clinical findings support that this patient is homebound (i.e. absences from home require considerable and taxing effort and are for medical reasons or druze services or infrequently or short duration when for other reasons) because: Homebound Reason: Patient requires assistance of a person or device to safely leave home Attestation: My signature below is to certify that this patient is under my care and that I, or nurse practitioner, or a physician's surgery assistant working with me, has a face-to -face encounter with this patient.
--- NOTE | 2017-09-06 16:21 | Electrocardiograph Report ---
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
--- NOTE | 2017-09-07 10:37 | Electrocardiograph Report ---
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
== END 2017-09-06 10:52 | disposition home health service (06) ==
LOC: 3BNU 15:49 → EMEROO 15:49 → 3BNU 19:41
PROVIDERS: ADMIT Nurse Practitioner; ATTEND Registered Nurse

== ENCOUNTER 2017-10-05 17:44 | Observation (INO) ==
--- NOTE | 2017-10-05 18:20 | Emergency Department Note ---
START Narrative - START START: I examined this patient and my medical decision-making was reviewed with the Resident Physician. I agree with the documented findings, disposition and treatment plan as described except to the extent set forth below. 81 yo F that was transferred here from another hospital to have a VQ study done. Patient had 2 syncopal episodes today with some agonal breathing and hypotension. These were witnessed. At the other ER they did a CT and a chest x -ray that was negative. It was a CT of the head. Her lab work was also unremarkable. However, she did have a slightly elevated d-dimer which they wanted to do a CTA of the chest but did not feel comfortable with her age and renal function. Patient her to our ER for a ventilation perfusion scan. We will order that study to effectively rule out any ventilation perfusion mismatch that would be consistent with a pulmonary embolus. Patient will also need to be admitted secondary to weakness and the family would like to have her placed in a assisted facility. Currently, she is back to her baseline with no deficits.
--- NOTE | 2017-10-05 18:51 | Emergency Department Note ---
Disposition Clinical Impression: Syncope and collapse Disposition: Still a Patient Condition: Fair Referrals: Donell Apodaca, [employer] [Primary Care Provider] - Time of Disposition: 18:53 General Adult HPI - General Chief complaint: ED Shortness of Breath/Dyspnea Stated complaint: needs VQ scan Time Seen by Provider: 10/05/17 17:48 Source: EMS Mode of arrival: EMS Limitations: no limitations, age Nursing Notes Reviewed: Yes Vital Signs Reviewed: Yes - History of Present Illness HPI Narrative: 81-year-old with history of dementia, presents after 2 episodes of syncope which passed out for 30 seconds, she was evaluated at the [facility] emergency department T had basic lab work chest x-ray EKG were performed and showed no evidence of acute pathology, concerning those that she had an elevated d-dimer greater than 500, given these findings, they plan to do a VQ scan per GFR is [address] [facility] [address] to be evaluated at [facility], the patient's son states that she lives alone at home she does have home health every day but he thinks that she needs more needs as he is concerned about her episodes of syncope. Patient currently denies chest pain, abdominal pain, hemoptysis melena, hematochezia. Pain Scale: 0 Consistency: constant Improves with: nothing Worsens with: nothing Associated symptoms: Reports: confusion. Denies: chest pain, cough, fever/ chills, headaches - Related Data Home Medications Medication Instructions Recorded Confirmed Atorvastatin [Lipitor] 10 mg PO DAILY 12/08/15 10/05/17 Donepezil [Aricept] 10 mg PO DAILY 12/08/15 10/05/17 Loratadine [Claritin] 10 mg PO DAILY 12/08/15 10/05/17 Metoprolol [Lopressor] 25 mg PO PRN PRN 12/08/15 10/05/17 Sertraline [Zoloft] 25 mg PO DAILY 12/08/15 10/05/17 Memantine HCl [Namenda Xr] 14 mg PO DAILY 01/02/16 10/05/17 Albuterol Sulfate [Ventolin Hfa] 8 gm IH Q6H PRN 10/05/17 10/05/17 Clopidogrel [Plavix] 75 mg PO DAILY 10/05/17 10/05/17 Allergies Allergy/AdvReac Type Severity Reaction Status Date / Time aspirin [ASA] Allergy Rash Verified 05/23/17 09:48 All systems ED: reviewed and negative except as stated. Review of Systems: As Per HPI Constitutional: Reports: weakness. Denies: fever, chills Eyes: Denies: eye pain ENT ED: Denies: ear pain Cardiovascular: Denies: chest pain Respiratory: Denies: cough, dyspnea Gastrointestinal: Denies: abdominal pain Genitourinary: Denies: urgency, dysuria Musculoskeletal: Denies: back pain Integumentary: Denies: rash, abrasion Neurological: Reports: as per HPI, weakness. Denies: headache, numbness, paresthesias, abnormal gait Psychiatric: Denies: anxiety Endocrine: Reports: fatigue Past Medical History - Past Medical History Attestation: Yes The following information was validated with the patient. Source: patient Medical history: Reports: COPD, dementia, hyperlipidemia, TIA Surgical history: Reports: hysterectomy, orthopedic, other Psychiatric history: Reports: no psych history SESSIONS CLERK history: Reports: no SESSIONS CLERK history - Social History Smoking Status: Former smoker Smokeless Tobacco Status: No Alcohol use: Reports: none Drug use: Reports: none Physical Exam Constitutional: emaciated cachectic female elderly appears stated age distress Eyes: PERRLA, sclera anicteric ENT & Mouth: MM dry Neck: normal inspection, neck is supple Resp: CTA bilaterally, no resp distress CV: RRR, no m/g/r GI: normal inspection, soft, no guarding or rigidity Neuro: A&O1 to self, CNII-XII grossly intact, MINAYA Skin: Poor skin turgor - General General appearance: alert Course Course Narrative: 81-year-old female with a AMANDA in setting of CK D, elevated d-dimer concerns for syncope plan is for VQ scan patient to be signed out to the night physician Dr. Neff and Dr. Rosa attending, for follow-up on scan plan for admission for multiple episodes of syncope Vital Signs Temperature 98.3 F 10/05/17 17:48 Pulse Rate 90 10/05/17 17:48 Respiratory Rate 16 10/05/17 17:48 Blood Pressure 100/70 10/05/17 17:48 O2 Sat by Pulse Oximetry 98 10/05/17 17:48 Temperature 98.3 F 10/05/17 17:48 Pulse Rate 90 10/05/17 17:48 Respiratory Rate 16 10/05/17 17:48 Blood Pressure 100/70 10/05/17 17:48 O2 Sat by Pulse Oximetry 98 10/05/17 17:48 Oxygen Delivery Oxygen Delivery Room Air Medical Decision Making - Medical Records Medical records reviewed: Yes I reviewed the patient's medical records. - Lab Data Lab results reviewed: Yes I reviewed the patient's lab results. - Radiology Data Radiology results reviewed: Yes I reviewed the patient's radiology results. - EKG Data EKG #1 EKG attestation: Yes I reviewed and interpreted this EKG. EKG results narrative: 80 bpm ID [id number] QRS 75 QTC 398 no evidence of acute ST segment elevations or depressions. EKG shows normal: sinus rhythm Rate: normal Rhythm: NSR S.B.A.R. - S.B.A.R. Situation: Demographics, MOA Background: Presenting Complaint, Relevant PMH, Meds, & Allergies Assessment: Vital Signs, Course and respsone to treatment, Exam Concerns, Patient/Family Expectation, Pertinant Lab Results, Outstanding Labs Recommendation: Barrier(s) to disposition, Recommendation based on pending studies, treatments, or consults S.B.A.R. Report Given to: Tawanda
[2017-10-05 19:44] LABS: Bilirubin,Urine Negative (Negative); Blood,Urine Small (Negative); Clarity,Urine Turbid (Clear); Color,Urine Yellow (Yellow); Glucose,Urine (UA) Normal (Normal); Ketones,Urine Negative (Negative); Leukocyte Esterase,Urine Large (Negative); Nitrite,Urine Negative (Negative); PH,Urine 7.5 pH Units (5.0-8.0); Protein,Urine Trace mg/dL (Neg-Trace); Specific Gravity,Urine 1.011 (1.010-1.025); Urobilinogen,Urine Normal (Normal)
[2017-10-05 19:46] LABS: Bacteria,Urine Many per hpf (None-Few); Squamous Epithelial Cell,Urine Many per lpf (None-Few); WBC,Urine TNTC per hpf (0-3)
[2017-10-05 19:56] LABS: Hyaline Casts,Urine None Seen per lpf (None-Few)
[2017-10-05] MEDS ORDERED: cefTRIAXone 1,000 MG in Water for inj. (sterile) 20 ML 10 ML IVP ONE (20:09)
--- NOTE | 2017-10-05 20:12 | Emergency Department Note ---
Disposition Clinical Impression: Syncope and collapse UTI (urinary tract infection) Qualifiers: Urinary tract infection type: site unspecified Hematuria presence: with hematuria Qualified Code(s): N39.0 - Urinary tract infection, site not specified Disposition: Admitted As Inpatient Condition: Fair Referrals: Donell Apodaca, [employer] [Primary Care Provider] - Forms: ED Satisfaction Letter General Adult HPI - General Chief complaint: ED Shortness of Breath/Dyspnea Stated complaint: needs VQ scan Time Seen by Provider: 10/05/17 17:48 Source: EMS Mode of arrival: EMS Limitations: no limitations, age - History of Present Illness Pain Scale: 0 Improves with: nothing Worsens with: nothing Associated symptoms: Reports: confusion. Denies: chest pain, cough, fever/ chills, headaches - Related Data Home Medications Medication Instructions Recorded Confirmed Atorvastatin [Lipitor] 10 mg PO HS 12/08/15 10/05/17 Donepezil [Aricept] 10 mg PO HS 12/08/15 10/05/17 Loratadine [Claritin] 10 mg PO DAILY 12/08/15 10/05/17 Metoprolol [Lopressor] 25 mg PO BID PRN 12/08/15 10/05/17 Sertraline [Zoloft] 25 mg PO DAILY 12/08/15 10/05/17 Memantine HCl [Namenda Xr] 14 mg PO DAILY 01/02/16 10/05/17 Albuterol Sulfate [Ventolin Hfa] 2 puff IH Q6H PRN 10/05/17 10/05/17 Clopidogrel [Plavix] 75 mg PO Q48H 10/05/17 10/05/17 Allergies Allergy/AdvReac Type Severity Reaction Status Date / Time aspirin [ASA] Allergy Rash Verified 05/23/17 09:48 Constitutional: Reports: weakness. Denies: fever, chills Eyes: Denies: eye pain ENT ED: Denies: ear pain Cardiovascular: Denies: chest pain Respiratory: Denies: cough, dyspnea Gastrointestinal: Denies: abdominal pain Genitourinary: Denies: urgency, dysuria Musculoskeletal: Denies: back pain Integumentary: Denies: rash, abrasion Neurological: Reports: as per HPI, weakness. Denies: headache, numbness, paresthesias, abnormal gait Psychiatric: Denies: anxiety Endocrine: Reports: fatigue Past Medical History - Past Medical History Medical history: Reports: COPD, dementia, hyperlipidemia, TIA Surgical history: Reports: hysterectomy, orthopedic, other Psychiatric history: Reports: no psych history CHIEF HOSPITAL ADMINISTRATOR history: Reports: no CHIEF HOSPITAL ADMINISTRATOR history - Social History Smoking Status: Former smoker Smokeless Tobacco Status: No Alcohol use: Reports: none Drug use: Reports: none Physical Exam - General Limitations: no limitations, age General appearance: alert Course Course Narrative: Patient seen and examined. She was signed out from dayshift team pending imaging. Please see their documentation for details. In brief the patient is an 81-year-old female with a prior history of dementia, TIA, hypertension who presented to [facility] after 2 syncopal episodes today. She underwent evaluation there with a noted elevated d-dimer with the inability to get an angiogram of her chest. Currently waiting for VQ study at this time. - Reevaluation(s) Reevaluation #1: Scheduled to imaging and labs with the patient and family present. I discussed with him about admission to the hospital for possible syncopal episodes and UTI. I also discussed CODE STATUS and he reports that she is DNR, CCA, DNI and to make her comfortable if something would happen. He does report that he is her power of bill adjuster. We will give her dose of Rocephin for UTI and admit her to the hospitalist service. Vital Signs Temperature 98.3 F 10/05/17 17:48 Pulse Rate 90 10/05/17 17:48 Respiratory Rate 16 10/05/17 17:48 Blood Pressure 100/70 10/05/17 17:48 O2 Sat by Pulse Oximetry 98 10/05/17 17:48 Temperature 98.3 F 10/05/17 17:48 Pulse Rate 79 10/05/17 20:55 Respiratory Rate 20 10/05/17 20:55 Blood Pressure 144/91 10/05/17 20:55 O2 Sat by Pulse Oximetry 96 10/05/17 20:55 Oxygen Delivery Oxygen Delivery Room Air Medical Decision Making - MDM Narrative Medical decision making narrative: 81-year-old female presents to the ER due to syncopal episodes and elevated d- dimer. Signed out from dayshift team. She is noted to be alert here at baseline. History of dementia. She lives at home alone. Family reports 2 syncopal episodes today while at rest. She was noted to be hypotensive at 80/ 40 during her second syncopal episode. Reports she has not taken metoprolol for 2 months. D-dimer was elevated at outside facility. VQ scan with low probability of pulmonary embolism. UTI noted on urinalysis. Patient given Rocephin and admitted to the hospitalist service. Discussed with family at bedside who is her power of bill adjuster who reports she is DNR CCA DNI. - Lab Data Lab results reviewed: Yes I reviewed the patient's lab results. Lab Results 10/05/17 Range/Units 19:29 Urine Color Yellow (Yellow) Urine Clarity Turbid A (Clear) Urine pH 7.5 (5.0-8.0) pH Units Ur Specific [place] 1.011 (1.010-1.025) Urine Protein Trace (Neg-Trace) mg/dL Urine Glucose (UA) Normal (Normal) mg/dL Urine Ketones Negative (Negative) mg/dL Urine Blood Small H (Negative) Urine Nitrite Negative (Negative) Urine Bilirubin Negative (Negative) Urine Urobilinogen Normal (Normal) mg/dL Ur Leukocyte Esterase Large H (Negative) Urine Microscopic RBC 3-5 H (0-3) per hpf Urine Microscopic WBC TNTC H (0-3) per hpf Ur Squamous Epith Cells Many H (None-Few) per lpf Urine Bacteria Many H (None-Few) per hpf Hyaline Casts None Seen (None-Few) per lpf Ur Culture Indicated? NO. (NO) - Radiology Data Radiology results reviewed: Yes I reviewed the patient's radiology results. Pulmonary Perfusion Imaging 10/05/17 17:52 IMPRESSION: Low Probability for Pulmonary Embolus. D/ / Cristal Vicente Cha, MD / Cristal Vicente Cha, MD Interpreting Provider: Cristal Vicente Cha, MD S.B.A.R. - S.B.A.R. Situation: Demographics, MOA Background: Presenting Complaint, Relevant PMH, Meds, & Allergies Assessment: Course and respsone to treatment, Exam Concerns, Patient/Family Expectation, Pertinant Lab Results Recommendation: Barrier(s) to disposition, Recommendation based on pending studies, treatments, or consults S.B.A.R. Report Given to: Dr. Nick Hammer Repor Time: 20:34 Attestation Statement - Attestation Attestation: I, Phillip Rosa MD, personally evaluated this patient and discussed their management with the resident physician. I reviewed the resident's note and agree with the documented findings, medical decision making, and plan of care. This patient was signed out at shift change from Dr. Real and Dr. Escalera. Please refer to their notes for complete details of the history and physical examination. Patient was transferred here from another facility for a VQ scan due to an elevated d-dimer. Patient had 2 witnessed syncopal episodes earlier today. Patient is alert and has no complaints but apparently has a history of dementia and lives alone. On examination patient is a well-developed thin elderly female in no acute distress. She is alert. No cyanosis or diaphoresis. Breath sounds are clear and equal bilaterally. Heart regular rate and rhythm. Abdomen soft and nontender with normal bowel sounds. VQ scan showed low probability for pulmonary embolism. Urinalysis consistent with UTI. The hospitalist, Dr. Romero, was consulted and accepted admission of the patient.
[2017-10-05] MEDS ORDERED: Naloxone 0.4 MG/ML INJ IVP PRN (21:48)
[2017-10-05] MEDS ORDERED: cefTRIAXone 1,000 MG in Water for inj. (sterile) 20 ML 10 ML IVP SCH (22:00)
--- NOTE | 2017-10-05 22:12 | Internal Med History&Physical ---
<Thee Martinez - Last Filed: 10/05/17 21:58> Date of Encounter: 10/05/17 Time of Encounter: 08:30 Assessment and Plan (1) Syncope and collapse Current visit: Yes Status: Acute Has been worked up within the last month, with EKG, Echo, and carotid duplex being normal Head CT negative then and now Was suspected vasovagal on last admission Patient on air sampling and monitoring (2) UTI (urinary tract infection) Current visit: Yes Status: Resolved UA showed large amount of leuk esterase, WBCs too numerous to count, and many bacteria. Continue rocephin 1 g IV daily Qualifiers: Urinary tract infection type: acute cystitis Hematuria presence: without hematuria Qualified Code(s): N30.00 - Acute cystitis without hematuria (3) Debilitated Current visit: Yes Status: Chronic PT/OT consulted Anticipate placement for rehabilitation (4) Elevated d-dimer Current visit: Yes Status: Acute [id number] at [place] VQ low probability for PE Most likely age related (5) Hyperlipidemia Current visit: Yes Status: Chronic Continue home statin Qualifiers: Hyperlipidemia type: unspecified Qualified Code(s): E78.5 - Hyperlipidemia , unspecified (6) Dementia Current visit: Yes Status: Chronic Stable Continue home medications Qualifiers: Dementia type: unspecified type Dementia behavioral disturbance: without behavioral disturbance Qualified Code(s): F03.90 - Unspecified dementia without behavioral disturbance (7) Essential hypertension Current visit: Yes Status: Chronic Holding home metoprolol, which the son states the patient does not take often (8) Depression Current visit: Yes Status: Chronic Controlled Continue home sertraline Qualifiers: Depression Type: unspecified Qualified Code(s): F32.9 - Major depressive disorder, single episode, unspecified (9) COPD (chronic obstructive pulmonary disease) Current visit: Yes Status: Chronic No evidence of exacerbation Continue home albuterol as needed Qualifiers: COPD type: unspecified COPD Qualified Code(s): J44.9 - Chronic obstructive pulmonary disease, unspecified (10) DVT prophylaxis Current visit: Yes Status: Acute Heparin subq q12h Internal Medicine - H&P: HPI Chief complaint: Syncope Admitted From: Home Plans for Post Hospital Care: [facility] History of present illness: Ms. Humphries is a 81 year old female who presents from [place] with two episodes of syncope. The first episode occurred at her kitchen table this morning in the presence of her son. He states that the episode lasted about 30 seconds before returning to baseline. She saw her PCP that afternoon, where she had another syncopal episode, this time lasting 3 minutes. Systolic BP was measured to be in the 80s at that time and her oxygenation was "82 or 84" per the son. She was sent to [place] ER from there. D-dimer was elevated at 561 there, and they were uncomfortable with performing CTA given her age and GFR of 44, so she was transferred to [facility] for V/Q scan. Son reports that the patient has had prior episodes of syncope, and has been evaluated in the past. Echocardiogram, carotid duplex, and other testing was negative then. Patients denies CP, SOB, palitations, ARRIAGA, or any other specific symptoms, and her son reports that she had not complained of any symptoms before or after the syncopal episodes. PMH is significant for dementia, COPD, HLD, hx of CVA, and depression. Past Med Surg Social Fam HX - Past Medical History Medical history: COPD, dementia, hyperlipidemia, TIA Psychiatric history: no psych history - Past Surgical History Surgical History: hysterectomy, orthopedic, other - Social History Smoking Status: Former smoker Smokeless Tobacco Status: No Alcohol use: none Drug use: none - Family History Father Living Status: Mother Living Status: Hx Family Cancer: Yes (unknown) Sister Living Status: Hx Family Neurologic Disorders: Yes (dementia) Internal Medicine - H&P: Meds Atorvastatin [Lipitor] 10 mg PO HS 12/08/15 [History] Donepezil [Aricept] 10 mg PO HS 12/08/15 [History] Loratadine [Claritin] 10 mg PO DAILY 12/08/15 [History] Metoprolol [Lopressor] 25 mg PO BID PRN 12/08/15 [History] Sertraline [Zoloft] 25 mg PO DAILY 12/08/15 [History] Memantine HCl [Namenda Xr] 14 mg PO DAILY 01/02/16 [History] Albuterol Sulfate [Ventolin Hfa] 2 puff IH Q6H PRN 10/05/17 [History] Clopidogrel [Plavix] 75 mg PO Q48H 10/05/17 [History] 3 Allergy/AdvReac Type Severity Reaction Status Date / Time aspirin [ASA] Allergy Rash Verified 05/23/17 09:48 All Systems PM: A 10-system review of systems was performed and is negative for pertinent findings except as documented above in the HPI. Review of systems: As per HPI - Constitutional Vitals: Temp Pulse Resp BP Pulse Ox 98.3 F 79 20 144/91 96 10/05/17 17:48 10/05/17 20:55 10/05/17 20:55 10/05/17 20:55 10/05/17 20:55 General appearance: Present: cooperative, A&O X 1 (oriented to self only), pleasant, no acute distress, answers questions appropriately - Head Head exam: Present: atraumatic, normal inspection, normocephalic - ENT ENT exam: Present: mucous membranes moist - Neck Neck exam general surgery: Present: trachea midline - Respiratory Respiratory exam: Present: decreased breath sounds, CTAB. Absent: accessory muscle use, respiratory distress - Cardiovascular Cardiovascular exam: Present: RRR, +S1, +S2 - GI/Abdominal GI/Abdominal exam: Present: soft, no peritoneal signs - Extremities Exam Extremities exam: Present: radial pulses palpable and symmetrical. Absent: pedal edema - Neurological Exam Neurological exam: Present: no focal deficits - Psychiatric Psychiatric exam: Present: normal affect, normal mood. Absent: agitated, anxious - Skin Skin exam: Present: dry, warm <Sloan Romero - Last Filed: 10/06/17 01:04> Date of Encounter: 10/06/17 Internal Medicine - H&P: HPI History of present illness: Ms. Humphries is a 81 year old female All Systems PM: A 10-system review of systems was performed and is negative for pertinent findings except as documented above in the HPI. - Constitutional Vitals: Temp Pulse Resp BP Pulse Ox 98.1 F 75 14 158/77 96 10/05/17 22:10 10/05/17 22:10 10/05/17 22:10 10/05/17 22:10 10/05/17 22:10 - Attending Attestation I have seen and examined the patient independently. I have discussed with resident physician Dr Martinez regarding the management plan, agreed with the documentation
[2017-10-06] MEDS: *HR* Heparin 5,000 UNIT/ML VIAL SQ SCH ×2 (05:10→17:47)
[2017-10-06 05:28] LABS: Basophils # 0.1 K/mcL (0.0-0.2); Basophils % 0.5 %; Eosinophils # 0.2 K/mcL (0.0-0.6); Eosinophils % 1.3 %; Hematocrit 44.6 % (35.3-44.9); Hemoglobin 13.4 g/dL (11.5-15.4); Immature Granulocytes % 0.4 % (0-4); Lymphocytes # 0.9 K/mcL (0.6-4.6); Lymphocytes % 7.3 %; Mean Corpuscular Hemoglobin 28.5 pg (28.0-33.3); Mean Corpuscular Volume 94.9 fL (83.0-100.0); Mean Platelet Volume 12.5 fL (9.4-12.4); Monocytes # 0.9 K/mcL (0.0-1.3); Monocytes % 6.8 %; Neutrophils # 10.6 K/mcL (1.6-8.9); Platelet Count 153 K/mcL (140-400); Red Cell Distribution Width 13.2 % (11.5-14.5); Segmented Neutrophils % 83.7 %
[2017-10-06 06:03] LABS: BUN/Creatinine Ratio 16 (6-26); Blood Urea Nitrogen 15 mg/dL (8-23); Calcium 8.6 mg/dL (8.6-10.3); Carbon Dioxide 24 mEq/L (23-29); Chloride 107 mEq/L (98-107); Glucose 79 mg/dL (70-105); Osmolality,Calculated 292 (280-300); Sodium 141 mEq/L (136-145); eGFR For African Americans > 60 (> 60); eGFR For Non-African Americans 56 (> 60)
[2017-10-06] MEDS: (Memantine Hcl [Namenda Xr] 14 MG) PO SCH (09:35)
--- NOTE | 2017-10-06 17:23 | Electrocardiograph Report ---
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
--- NOTE | 2017-10-06 17:58 | Internal Med Progress Note ---
Date of Encounter: 10/06/17 Time of Encounter: 09:20 - Assessment and plan (1) Syncope and collapse Current Visit: Yes Status: Acute Assessment and plan: Patient had a witnessed syncopal episode yesterday, lasting approximately 30 seconds. Patient had second syncopal episode at primary care office lasting approximately 3 minutes. He was hypotensive at the primary care office and O2 sats were in the 80s patient was sent to [place] emergency department for evaluation and was sent here for VQ scan due to decreased GFR. Son reports he has had prior episodes of syncope in the past has been evaluated. Patient had an echocardiogram in September 2017 that showed an LVEF of 55% with normal LVEF, mild LV DD and no significant valvular dysfunction. Carotid Dopplers on same date showed minimal plaque throughout bilaterally. CT this visit shows no acute intracranial abnormality with stable volume loss, left occipital lobe encephalomalacia and white matter disease. EKG showed normal sinus rhythm with a rate of 94, [place] interval 164, QRS 75, QTC 397. Patient has remained normotensive, mild tachycardia less than 100 bpm. She is not requiring oxygen. She does not appear to take any medications that would cause confusion above her baseline or syncope. Patient with mild leukocytosis, electrolytes are within normal limits. Unclear etiology at this time. Continue telemetry Continue monitor labs. Orthostatic vital signs have been ordered since this morning, not completed. (2) Elevated d-dimer Current Visit: Yes Status: Acute Assessment and plan: Patient presented with elevated d-dimer. She was transferred from [facility] for VQ scan due to decreased GFR. VQ scan showed low probability for pulmonary embolus. Patient does not appear to have any difficulty breathing and her sats are within normal limits. She is not requiring any supplemental oxygen, which reported chest pain. Continue telemetry and vital signs. (3) UTI (urinary tract infection) Current Visit: Yes Status: Acute Assessment and plan: Urine turbid with small amount of blood, large amount leukocyte esterase, too numerous to count white cells and many bacteria. Urine culture has been ordered. Patient currently is being treated with Rocephin 1 g daily. Patient has mild leukocytosis 12.6. Most likely due to urine. Continue IV antibiotics, monitor patient, Tylenol for pain or fever. Qualifiers: Urinary tract infection type: site unspecified Hematuria presence: with hematuria Qualified Code(s): N39.0 - Urinary tract infection, site not specified; R31.9 - Hematuria, unspecified; R31.9 - Hematuria, unspecified (4) COPD (chronic obstructive pulmonary disease) Current Visit: Yes Status: Chronic Assessment and plan: No acute exacerbation. Lungs are clear no wheezing or rhonchi. No rales or respiratory distress. Patient is not requiring supplemental oxygen. Continue home medications. Continue oxygen as needed to maintain sats greater than 92%. Nebulizer treatment as needed. Continue home medications. Qualifiers: COPD type: unspecified COPD Qualified Code(s): J44.9 - Chronic obstructive pulmonary disease, unspecified (5) Debilitated Current Visit: Yes Status: Chronic Assessment and plan: Patient is very frail and cachectic. PT/OT are on board. Missed visits today. (6) Dementia Current Visit: Yes Status: Chronic Assessment and plan: Patient with baseline dementia. Continue Aricept. Qualifiers: Dementia type: unspecified type Dementia behavioral disturbance: without behavioral disturbance Qualified Code(s): F03.90 - Unspecified dementia without behavioral disturbance (7) Depression Current Visit: Yes Status: Chronic Assessment and plan: Chronic. Continue Zoloft 25 mg by mouth daily. Qualifiers: Depression Type: unspecified Qualified Code(s): F32.9 - Major depressive disorder, single episode, unspecified (8) Essential hypertension Current Visit: Yes Status: Chronic Assessment and plan: Chronic. Continue home medications. (9) Hyperlipidemia Current Visit: Yes Status: Chronic Assessment and plan: Chronic. Continue Lipitor. Qualifiers: Hyperlipidemia type: unspecified Qualified Code(s): E78.5 - Hyperlipidemia , unspecified (10) DVT prophylaxis Current Visit: Yes Status: Acute Assessment and plan: Heparin subcutaneous every 12 hours. (11) Protein calorie malnutrition Current Visit: Yes Status: Acute Assessment and plan: Patient with decreased by mouth intake, most likely due to confusion and physical debility. BMI is 14.4. Consult nutrition. Qualifiers: Protein-calorie malnutrition severity: unspecified severity Qualified Code( s): E46 - Unspecified protein-calorie malnutrition - Time Spent With Patient less than 15 minutes - Subjective Interval history: Patient was seen and assessed at 9:20 AM. She is frail, cachectic, alert, oriented to name only. She denies any pain. She denies headache or chest pain , no abdominal pain or nausea or vomiting. No shortness of breath no neck pain or dizziness. Patient reports that she lives at home with her children and would like to return there after discharge. - Constitutional Vitals: Temp Pulse Resp BP Pulse Ox 98.3 F 85 16 129/72 93 10/06/17 15:25 10/06/17 15:25 10/06/17 15:25 10/06/17 15:25 10/06/17 15:25 General appearance: Present: cachectic, cooperative, A&O X 1 (oriented to self only), pleasant, no acute distress, answers questions appropriately - Head Head exam: Present: atraumatic, normal inspection, normocephalic - Eye Eye exam: Present: normal appearance, conjuntiva pink, sclera anicteric - Neck Neck exam general surgery: Present: supple, trachea midline. Absent: lymphadenopathy - Respiratory Respiratory exam: Present: decreased breath sounds, CTAB. Absent: accessory muscle use, chest wall tenderness, rales, rhonchi, wheezes - Cardiovascular Cardiovascular exam: Present: RRR, +S1, +S2. Absent: diastolic murmur, gallop, rubs, systolic murmur - GI/Abdominal GI/Abdominal exam: Present: normal bowel sounds, soft. Absent: distended, hepatomegaly, tenderness - Extremities Exam Extremities exam: Present: warm, radial pulses palpable and symmetrical. Absent : calf tenderness, cyanotic, normal capillary refill, normal inspection, pedal edema, tenderness - Neurological Exam Neurological exam: Present: alert, altered, no focal deficits. Absent: oriented X3, facial droop, speech deficit - Skin Skin exam: Present: dry, intact, normal color, warm. Absent: rash Internal Medicine: Result - Labs CBC & Chem 7: 10/06/17 04:36 10/06/17 04:36 Labs: Short CBC 10/06/17 Range/Units 04:36 WBC 12.6 H (4.3-11.1) K/mcL Hgb 13.4 (11.5-15.4) g/dL Hct 44.6 (35.3-44.9) % Plt Count 153 (140-400) K/mcL Neutrophils # 10.6 H (1.6-8.9) K/mcL BMP 10/06/17 04:36 Sodium 141 Potassium 4.0 Chloride 107 Carbon Dioxide 24 BUN 15 Creatinine 0.95 Glucose 79 Calcium 8.6 Consult Discharge Plan - Plan Referrals: Paulie,Donell W, JESUS [Primary Care Provider] -
[2017-10-06] MEDS ORDERED: cefTRIAXone 1,000 MG in Water for inj. (sterile) 20 ML 10 ML IVP SCH (21:00)
[2017-10-07 05:10] LABS: Basophils # 0.1 K/mcL (0.0-0.2); Basophils % 0.6 %; Eosinophils # 0.3 K/mcL (0.0-0.6); Eosinophils % 3.1 %; Hematocrit 39.7 % (35.3-44.9); Hemoglobin 12.8 g/dL (11.5-15.4); Immature Granulocytes % 0.3 % (0-4); Lymphocytes # 1.7 K/mcL (0.6-4.6); Lymphocytes % 17.7 %; Mean Corpuscular HGB Conc 32.2 g/dL (31.6-35.5); Mean Corpuscular Hemoglobin 28.9 pg (28.0-33.3); Mean Corpuscular Volume 89.6 fL (83.0-100.0); Mean Platelet Volume 13.8 fL (9.4-12.4); Monocytes # 0.7 K/mcL (0.0-1.3); Monocytes % 7.8 %; Neutrophils # 6.6 K/mcL (1.6-8.9); Platelet Count 118 K/mcL (140-400); Red Blood Count 4.43 M/mcL (3.82-4.97); Red Cell Distribution Width 13.2 % (11.5-14.5); Segmented Neutrophils % 70.5 %
[2017-10-07 05:44] LABS: BUN/Creatinine Ratio 19 (6-26); Blood Urea Nitrogen 19 mg/dL (8-23); Carbon Dioxide 24 mEq/L (23-29); Chloride 108 mEq/L (98-107); Glucose 91 mg/dL (70-105); Osmolality,Calculated 294 (280-300); Sodium 141 mEq/L (136-145); eGFR For African Americans > 60 (> 60); eGFR For Non-African Americans 54 (> 60)
[2017-10-07] MEDS: *HR* Heparin 5,000 UNIT/ML VIAL SQ SCH (06:17)
[2017-10-07 06:23] LABS: Calcium 8.6 mg/dL (8.6-10.3)
[2017-10-07] MEDS: (Memantine Hcl [Namenda Xr] 14 MG) PO SCH (08:08)
--- NOTE | 2017-10-07 09:46 | Discharge Summary ---
Date of Encounter: 10/07/17 Time of Encounter: 09:25 - Discharge Diagnosis (1) Syncope and collapse Priority: Primary Status: Resolved Comments: Patient had a witnessed syncopal episode at home on day of admission, lasting approximately 30 seconds. Patient had second syncopal episode at primary care office lasting approximately 3 minutes. He was hypotensive at the primary care office and O2 sats were in the 80s patient was sent to [place] emergency department for evaluation and was sent here for VQ scan due to decreased GFR. Son reports he has had prior episodes of syncope in the past has been evaluated. Echocardiogram in September 2017 that showed an LVEF of 55% with normal LVEF, mild LV DD and no significant valvular dysfunction. Carotid Dopplers on same date showed minimal plaque throughout bilaterally. CT this visit shows no acute intracranial abnormality with stable volume loss, left occipital lobe encephalomalacia and white matter disease. EKG showed normal sinus rhythm with a rate of 94, [place] interval 164, QRS 75, QTC 397. Patient has remained normotensive, mild tachycardia less than 100 bpm. She is not requiring oxygen. She does not appear to take any medications that would cause confusion above her baseline or syncope. Patient with mild leukocytosis, electrolytes are within normal limits. Most likely due to orthostatic hypotension and decreased fluid volume secondary to poor oral intake, and infection. I assisted pt to and from chair to bed without difficulty, pt denied dizziness or chest pain, SOB. Orthostatic vital signs were positive. She was given a 500 mL bolus of 0.9 normal saline and repeat orthostatic vital signs are within normal limits. (2) Elevated d-dimer Priority: Secondary Status: Acute Comments: Patient presented with elevated d-dimer. She was transferred from [facility] for VQ scan due to decreased GFR. VQ scan showed low probability for pulmonary embolus. Patient does not appear to have any difficulty breathing and her sats are within normal limits. She is not requiring any supplemental oxygen. (3) UTI (urinary tract infection) Priority: Secondary Status: Acute Comments: Urine turbid with small amount of blood, large amount leukocyte esterase, too numerous to count white cells and many bacteria. Urine culture has been ordered and received, results pending. Patient currently is being treated with Rocephin 1 g daily. Patient has mild leukocytosis 12.6. Most likely due to urine. Pt will be sent with rx for Bactrim, will follow culture and notify ECF. Qualifiers: Urinary tract infection type: site unspecified Hematuria presence: with hematuria Qualified Code(s): N39.0 - Urinary tract infection, site not specified; R31.9 - Hematuria, unspecified; R31.9 - Hematuria, unspecified (4) COPD (chronic obstructive pulmonary disease) Priority: Secondary Status: Chronic Comments: No acute exacerbation. Lungs are clear no wheezing or rhonchi. No rales or respiratory distress. Patient is not requiring supplemental oxygen. Continue home medications. Continue oxygen as needed to maintain sats greater than 92%. Nebulizer treatments as needed. Continue home medications. Qualifiers: COPD type: unspecified COPD Qualified Code(s): J44.9 - Chronic obstructive pulmonary disease, unspecified (5) Debilitated Priority: Secondary Status: Chronic Comments: Patient is very frail and cachectic. PT/OT are on board, evaluations still pending. (6) Dementia Priority: Secondary Status: Chronic Comments: Pt with baseline dementia, continue home dose of Aricept. Qualifiers: Dementia type: unspecified type Dementia behavioral disturbance: without behavioral disturbance Qualified Code(s): F03.90 - Unspecified dementia without behavioral disturbance (7) Depression Priority: Secondary Status: Chronic Comments: Chronic. Continue Zoloft home dose. Qualifiers: Depression Type: unspecified Qualified Code(s): F32.9 - Major depressive disorder, single episode, unspecified (8) Essential hypertension Priority: Secondary Status: Chronic Comments: Chronic. Continue home medications. (9) Hyperlipidemia Priority: Secondary Status: Chronic Comments: Chronic. Continue Lipitor. Qualifiers: Hyperlipidemia type: unspecified Qualified Code(s): E78.5 - Hyperlipidemia , unspecified (10) DVT prophylaxis Priority: Secondary Status: Acute Comments: Heparin SQ BID, pt has been up to chair. (11) Protein calorie malnutrition Priority: Secondary Status: Chronic Comments: Pt with decreased po intake, most likely due to confusion and physical deconditioning. Nutrition has been consulted for po supplements. BMI 14.2. May add supplement shakes TID Qualifiers: Protein-calorie malnutrition severity: unspecified severity Qualified Code( s): E46 - Unspecified protein-calorie malnutrition - Discharge Medications Prescriptions: Sulfamethoxazole/Trimeth DS [Bactrim DS] 1 each PO BID #14 tablet Home Medications: Atorvastatin [Lipitor] 10 mg PO HS 12/08/15 [History] Donepezil [Aricept] 10 mg PO HS 12/08/15 [History] Loratadine [Claritin] 10 mg PO DAILY 12/08/15 [History] Metoprolol [Lopressor] 25 mg PO BID PRN 12/08/15 [History] Sertraline [Zoloft] 25 mg PO DAILY 12/08/15 [History] Memantine HCl [Namenda Xr] 14 mg PO DAILY 01/02/16 [History] Albuterol Sulfate [Ventolin Hfa] 2 puff IH Q6H PRN 10/05/17 [History] Clopidogrel [Plavix] 75 mg PO Q48H 10/05/17 [History] Sulfamethoxazole/Trimeth DS [Bactrim DS] 1 each PO BID #14 tablet 10/07/17 [Rx] Allergies/Adverse Reactions: 3 Allergy/AdvReac Type Severity Reaction Status Date / Time aspirin [ASA] Allergy Rash Verified 05/23/17 09:48 Date of admission: 10/05/17 21:32 Primary care physician: Donell Apodaca CNP Consults: 10/05/17 21:50 Consult to Occupational Therapy [CONS] Routine Comment: Evaluate, develop and implement POC Reason for Consult: Debilitation, need for placement Consult to Physical Therapy [CONS] Routine Comment: Evaluate, develop and implement POC Reason for Consult: Debilitation, need for placement 10/06/17 01:05 Consult to Basket Maker [CONS] Routine Reason for SW Consult: Need placement 10/06/17 18:13 Consult to Nutrition [CONS] Routine Comment: Consulting Provider: NUTRITION Reason for Dietary Consult: PO Supplementation Discharging clinician: Zaida Peng Anticipated date of discharge: 10/07/17 - Patient Status Disposition: Transfer SNF Condition: Fair Functional capacity at discharge: uses cane/walker Overall status at discharge: patient is progressing back to baseline - Discharge Instructions Follow Up With: Donell Apodaca CNP [Primary Care Provider] - - Diet and Activity Activity: as per physical therapy Diet: advance to your usual diet Hospital course: Ms. Humphries is a 81 year old female with past medical history of dementia, confusion, depression and COPD who presents to the emergency department for evaluation of 2 syncopal events on the day of admission. Patient was found to have poor oral intake as well as urinary tract infection most likely contributed to syncopal episodes. She has been treated with IV antibiotics will will be sent to [facility] for rehabilitation and will take by mouth Bactrim. She had an elevated d-dimer, piece every scan showed low probability for PE. Echocardiogram in September, showed preserved EF with mild LV DD and no significant valvular dysfunction. Carotid Dopplers at the same time showed minimal plaque throughout bilaterally. Head CT was negative, EKG was sinus rhythm with no ST changes. Patient has remained normotensive and is not requiring supplemental oxygen. Her mentation has returned to baseline. Patient had positive orthostatic vital signs which returned to normal after 500 mL bolus. - Time Spent with Patient Total time spent providing and/or coordinating discharge services: - Constitutional Vitals: Temp Pulse Resp BP Pulse Ox 97.8 F 83 14 156/79 96 10/07/17 06:49 10/07/17 06:49 10/07/17 06:49 10/07/17 06:49 10/07/17 06:49 General appearance: Present: cachectic, cooperative, A&O X 1 (oriented to self only), pleasant, no acute distress, answers questions appropriately - Head Head exam: Present: atraumatic, normal inspection, normocephalic - Eye Eye exam: Present: normal appearance, PERRL, conjuntiva pink, sclera anicteric Pupils: Present: PERRL - Neck Neck exam general surgery: Present: supple, trachea midline. Absent: lymphadenopathy, tenderness - Respiratory Respiratory exam: Present: CTAB. Absent: accessory muscle use, chest wall tenderness, rales, respiratory distress, rhonchi, wheezes - Cardiovascular Cardiovascular exam: Present: RRR, +S1, +S2. Absent: diastolic murmur, gallop, rubs, systolic murmur - GI/Abdominal GI/Abdominal exam: Present: normal bowel sounds, soft, no peritoneal signs. Absent: distended, hepatomegaly, tenderness - Extremities Exam Extremities exam: Present: normal capillary refill, normal inspection, warm, radial pulses palpable and symmetrical. Absent: calf tenderness, cyanotic, pedal edema - Neurological Exam Neurological exam: Present: alert, oriented X3, no focal deficits. Absent: facial droop, speech deficit - Skin Skin exam: Present: dry, intact, normal color, warm. Absent: rash
[2017-10-07] MEDS ORDERED: 0.9 % Sodium Chloride 500 ML IVC ONE (10:02)
--- NOTE | 2017-10-07 10:05 | Physician Discharge Referral ---
ExtendedCare Referral Info Transfer To: [facility] and Care Provider in Charge after Transfer: PCP Institutional Level of Care: Intermediate - Diagnosis (1) Syncope and collapse Priority: Primary Status: Resolved (2) Elevated d-dimer Priority: Secondary Status: Acute (3) UTI (urinary tract infection) Priority: Secondary Status: Acute (4) COPD (chronic obstructive pulmonary disease) Priority: Secondary Status: Chronic (5) Debilitated Priority: Secondary Status: Chronic (6) Dementia Priority: Secondary Status: Chronic (7) Depression Priority: Secondary Status: Chronic (8) Essential hypertension Priority: Secondary Status: Chronic (9) Hyperlipidemia Priority: Secondary Status: Chronic (10) DVT prophylaxis Priority: Secondary Status: Acute (11) Protein calorie malnutrition Priority: Secondary Status: Chronic Prognosis: Fair Aware of Diagnosis: Family - Transfer Medications Home Medications: Atorvastatin [Lipitor] 10 mg PO HS 12/08/15 [History] Donepezil [Aricept] 10 mg PO HS 12/08/15 [History] Loratadine [Claritin] 10 mg PO DAILY 12/08/15 [History] Metoprolol [Lopressor] 25 mg PO BID PRN 12/08/15 [History] Sertraline [Zoloft] 25 mg PO DAILY 12/08/15 [History] Memantine HCl [Namenda Xr] 14 mg PO DAILY 01/02/16 [History] Albuterol Sulfate [Ventolin Hfa] 2 puff IH Q6H PRN 10/05/17 [History] Clopidogrel [Plavix] 75 mg PO Q48H 10/05/17 [History] Allergies/Adverse Reactions: 3 Allergy/AdvReac Type Severity Reaction Status Date / Time aspirin [ASA] Allergy Rash Verified 05/23/17 09:48 - Respiratory Orders Smoking Cessation: Smoking cessation has been advised. For more information, call the [place] Tobacco Quit Line at 7-908-AUHK-NOW. - Lab Orders Lab Orders: CBC, U/A, Madi 17, CXR yearly - Advance Directives Code Status: DNR-Arrest/Don't Intubate - Mobility Orders Chair, Ambulate - Rehabiliation Orders Rehab Potential: Fair - Treatments Skin tear care topically daily PRN per policy, May check for fecal impaction rectally daily PRN, Fleet enema rectally every other day PRN cleansing purposes - Diet Orders Regular CERTIFICATION: I certify that the transfer of the above named patient to an Extended Care Facility is necessary for the continuing treatment of the diagnosis listed. The above information is true and accurate reflection of patient's current condition. Confidential - Redisclosure prohibited without a patient's written consent.
[2017-10-07 16:15] VITALS: BP 159/81
--- NOTE | 2017-10-11 12:55 | Event Note ---
Date of Encounter: 10/11/17 Time of Encounter: 12:54 The patient was discharged on Bactrim, however needs Macrobid. Called [facility] and notified their staff physician.
== END 2017-10-07 18:40 ==
LOC: 3BNU 17:44 → EMEROO 17:44 → 3BNU 21:50
PROVIDERS: ADMIT Internal Medicine; ATTEND Hospitalist